=== PATIENT | male | born 1960 | race Caucasian/White ===

== ENCOUNTER 2018-12-07 11:26 | Inpatient (IN) | payer OTHER ==
[~2018-12-07] VITALS: Ht 172.7 cm; Wt 108.9 kg
[2018-12-07 12:00] LABS: BASO % 1 % (0-3); EOS # 0.2 x10^3/uL (0.0-0.7); EOS % 4 % (0-3); HEMATOCRIT 43.9 % (39.0-53.0); HEMOGLOBIN 14.8 g/dL (13.0-17.5); LYMPH # 1.5 x10^3/uL (1.0-4.8); LYMPH % 27 % (24-48); MEAN CORPUSCULAR HEMOGLOBIN 31 pg (25-35); MEAN CORPUSCULAR HGB CONC 34 g/dL (31-37); MEAN CORPUSCULAR VOLUME 91 fL (79-100); MONO # 0.7 x10^3/uL (0.0-1.1); MONO % 13 % (0-9); NEUT % 55 % (31-73); PLATELET COUNT 136 x10^3/uL (140-400); RED CELL DISTRIBUTION WIDTH 13.2 % (11.5-14.5); WHITE BLOOD COUNT 5.4 x10^3/uL (4.0-11.0)
[2018-12-07] MEDS ORDERED: CLINDAMYCIN 600MG PREMIX 50 ML IV ONE (12:00)
[2018-12-07] MEDS ORDERED: IV NORMAL SALINE 1000ML BAG 1,000 ML IV ONE (12:00)
[2018-12-07 12:08] LABS: CREATININE 1.1 mg/dL (0.7-1.3); GFR 68.5; POTASSIUM 4.3 mmol/L (3.5-5.1)
[2018-12-07 12:14] LABS: ALBUMIN 3.7 g/dL (3.4-5.0); ALBUMIN/GLOBULIN RATIO 0.9 (1.0-1.7); TOTAL BILIRUBIN 0.8 mg/dL (0.2-1.0); TOTAL PROTEIN 7.9 g/dL (6.4-8.2)
--- NOTE | 2018-12-07 12:31 | RAD ---
Left lower extremity venous duplex study Clinical History: Lower extremity pain Technique: Using a combination of real time ultrasound imaging and color-flow and pulse Doppler imaging techniques, including spectral analysis, graded compression and augmentation, duplex evaluation of the deep venous system of the left lower extremity was performed. Multiple images were obtained. Findings: There is no sonographic evidence of deep venous thrombosis involving the visualized deep venous structures of the left lower extremity Impression: No evidence of deep venous thrombosis involving the left lower extremity Electronically signed by: Alan Cid MD (12/07/2018 12:28 PM) [facility]
--- NOTE | 2018-12-07 12:37 | PHYS DOC ---
Past Medical History Past Medical History: Diabetes-Type II, Hypertension, Hypothyroid Past Surgical History: Cholecystectomy Additional Past Surgical Histo: LUMBAR FUSION, SPINAL IMPLANT, AORTIC VALVE REPLACEMENT Alcohol Use: None Drug Use: None Adult General Chief Complaint Chief Complaint: LOWER EXT PAIN HPI HPI Patient is a 58 year old male who presents with left leg swelling, redness, and pain has been increasing in severity. She was originally seen at [facility] 5 weeks ago for left foot pain, he states his left foot has improved and his wound has healed. Was seen in the wound clinic on Wednesday and they said his foot was looking good, however he said several days ago his left leg started getting redness and swelling. Rates his pain as 5 out of 10 in severity and sharp. The patient is a diabetic. Review of Systems Review of Systems Constitutional: Denies fever or chills [] Eyes: Denies change in visual acuity, redness, or eye pain [] HENT: Denies nasal congestion or sore throat [] Respiratory: Denies cough or shortness of breath [] Cardiovascular: No additional information not addressed in HPI [] GI: Denies abdominal pain, nausea, vomiting, bloody stools or diarrhea [] : Denies dysuria or hematuria [] Musculoskeletal: Reports L leg pain. Integument: Reports redness to L leg. Neurologic: Denies headache, focal weakness or sensory changes [] Endocrine: Denies polyuria or polydipsia [] Complete systems were reviewed and found to be within normal limits, except as documented in this note. Current Medications Current Medications Current Medications Medications (Trade) Dose Ordered Sig/Mariposa Start Time Stop Time Status Last Admin Dose Admin Clindamycin Phosphate 50 ml @ 100 mls/hr 1X ONCE 12/07/18 12:00 12/07/18 12:29 DC 12/07/18 12:27 100 MLS/HR Sodium Chloride 1,000 ml @ 1,000 mls/hr 1X ONCE 12/07/18 12:00 12/07/18 12:59 DC 12/07/18 12:27 1,000 MLS/HR Allergies Allergies Allergies Coded Allergies Type Severity Reaction Last Updated Verified tetracycline Allergy Unknown rash 12/07/18 Yes Physical Exam Physical Exam Constitutional: Well developed, well nourished, no acute distress, non-toxic appearance. [] HENT: Normocephalic, atraumatic, bilateral external ears normal, oropharynx moist, no oral exudates, nose normal. [] Eyes: PERRLA, EOMI, conjunctiva normal, no discharge. [] Neck: Normal range of motion, no tenderness, supple, no stridor. [] Cardiovascular:Heart rate regular rhythm, no murmur [] Lungs & Thorax: Bilateral breath sounds clear to auscultation [] Abdomen: Bowel sounds normal, soft, no tenderness, no masses, no pulsatile masses. [] Skin: Warm, dry, no erythema, no rash. [] Back: No tenderness, no CVA tenderness. [] Extremities: Tenderness, and erythema and edema to L leg. Is hot to touch. Neurologic: Alert and oriented X 3, normal motor function, normal sensory function, no focal deficits noted. [] Psychologic: Affect normal, judgement normal, mood normal. [] Current Patient Data Vital Signs Vital Signs Date Time Temp Pulse Resp B/P (MAP) Pulse Ox O2 Delivery O2 Flow Rate FiO2 12/07/18 11:28 98.6 90 18 167/94 (118) 98 Room Air 98.6 Lab Values Laboratory Tests Test 12/07/18 11:46 White Blood Count 5.4 x10^3/uL (4.0-11.0) Red Blood Count 4.80 x10^6/uL (4.30-5.70) Hemoglobin 14.8 g/dL (13.0-17.5) Hematocrit 43.9 % (39.0-53.0) Mean Corpuscular Volume 91 fL (79-100) Mean Corpuscular Hemoglobin 31 pg (25-35) Mean Corpuscular Hemoglobin Concent 34 g/dL (31-37) Red Cell Distribution Width 13.2 % (11.5-14.5) Platelet Count 136 x10^3/uL (140-400) L Neutrophils (%) (Auto) 55 % (31-73) Lymphocytes (%) (Auto) 27 % (24-48) Monocytes (%) (Auto) 13 % (0-9) H Eosinophils (%) (Auto) 4 % (0-3) H Basophils (%) (Auto) 1 % (0-3) Neutrophils # (Auto) 3.0 x10^3/uL (1.8-7.7) Lymphocytes # (Auto) 1.5 x10^3/uL (1.0-4.8) Monocytes # (Auto) 0.7 x10^3/uL (0.0-1.1) Eosinophils # (Auto) 0.2 x10^3/uL (0.0-0.7) Basophils # (Auto) 0.0 x10^3/uL (0.0-0.2) Platelet Estimate Adequate (ADEQUATE) Large Platelets Present Sodium Level 141 mmol/L (136-145) Potassium Level 4.3 mmol/L (3.5-5.1) Chloride Level 103 mmol/L (98-107) Carbon Dioxide Level 31 mmol/L (21-32) Anion Gap 7 (6-14) Blood Urea Nitrogen 18 mg/dL (8-26) Creatinine 1.1 mg/dL (0.7-1.3) Estimated GFR (Cockcroft-Gault) 68.5 BUN/Creatinine Ratio 16 (6-20) Glucose Level 166 mg/dL (70-99) H Lactic Acid Level 0.7 mmol/L (0.4-2.0) Calcium Level 9.0 mg/dL (8.5-10.1) Total Bilirubin 0.8 mg/dL (0.2-1.0) Aspartate Amino Transferase (AST) 27 U/L (15-37) Alanine Aminotransferase (ALT) 32 U/L (16-63) Alkaline Phosphatase 94 U/L (46-116) Total Protein 7.9 g/dL (6.4-8.2) Albumin 3.7 g/dL (3.4-5.0) Albumin/Globulin Ratio 0.9 (1.0-1.7) L Laboratory Tests 12/07/18 11:46 Laboratory Tests 12/07/18 11:46 EKG EKG [] Radiology/Procedures Radiology/Procedures [facility] [address] [place] [address] IMAGING REPORT Signed PATIENT: AUBRIE OSMAN ACCOUNT: [id number] : 1960 LOCATION: ER AGE: 58 SEX: M EXAM STATUS: REG ER ORD. PHYSICIAN: BUSHRA HONG APRN REASON: pain, swelling PROCEDURE: TIBIA FIBULA LEFT EXAM: LEFT TIBIA/FIBULA 2 VIEWS. HISTORY: Left lower extremity pain/swelling. COMPARISON: None. FINDINGS: No fractures are identified. Focal cortical thickening along the medial aspect of the left proximal fibular metadiaphysis is most likely secondary to ossification of the interosseous membrane. There are small osteophytes along the medial compartment of the left knee consistent with mild osteoarthritis. Ossification at the tip of the lateral malleolus likely reflects chronic ligamentous injury. There are moderate plantar and posterior calcaneal spurs. There is diffuse subcutaneous edema throughout the visualized lower extremity. Atherosclerotic calcifications are noted. IMPRESSION: 1. Focal cortical thickening along the left proximal fibula is most likely a variant of normal. Correlate for focal proximal fibular tenderness to exclude a stress reaction. 2. Diffuse subcutaneous edema. Electronically signed by: Meenakshi Ballard MD (12/07/2018 12:42 PM) [facility] DICTATED and SIGNED BY: ALEX BALLARD MD DATE: 12/07/18 1242 [][facility] [address], [place] [id number] IMAGING REPORT Signed PATIENT: AUBRIE OSMAN ACCOUNT: [id number] : 1960 LOCATION: ER AGE: 58 SEX: M EXAM STATUS: REG ER ORD. PHYSICIAN: BUSHRA HONG APRN REASON: swelling, pain PROCEDURE: VENOUS LOWER EXTREMITY LEFT Left lower extremity venous duplex study Clinical History: Lower extremity pain Technique: Using a combination of real time ultrasound imaging and color-flow and pulse Doppler imaging techniques, including spectral analysis, graded compression and augmentation, duplex evaluation of the deep venous system of the left lower extremity was performed. Multiple images were obtained. Findings: There is no sonographic evidence of deep venous thrombosis involving the visualized deep venous structures of the left lower extremity Impression: No evidence of deep venous thrombosis involving the left lower extremity Electronically signed by: Alan Reynoso MD (12/07/2018 12:28 PM) [facility] DICTATED and SIGNED BY: ALAN REYNOSO MD DATE: 12/07/18 1228 Course & Med Decision Making Course & Med Decision Making Pertinent Labs and Imaging studies reviewed. (See chart for details) Will get ultrasound, labs, and give Clindamycin. Ultrasound and X-ray are unremarkable. Labs are unremarkable. Discussed with Dr. Ontiveros who accepts admission to hospital for Cellulitis. Rajan Disclaimer Rajan Disclaimer This electronic medical record was generated, in whole or in part, using a voice recognition dictation system. Departure Departure Impression: Primary Impression: Cellulitis Disposition: ADMITTED INPATIENT Admitting Physician: SD Condition: STABLE Referrals: [facility] [employer] [facility] (PCP) Problem Qualifiers Primary Impression: Cellulitis Site of cellulitis: extremity Site of cellulitis of extremity: lower extremity Laterality: left Qualified Codes: L03.116 - Cellulitis of left lower limb BUSHRA HONG APRN Dec 07, 2018 12:37
--- NOTE | 2018-12-07 12:45 | RAD ---
EXAM: LEFT TIBIA/FIBULA 2 VIEWS. HISTORY: Left lower extremity pain/swelling. COMPARISON: None. FINDINGS: No fractures are identified. Focal cortical thickening along the medial aspect of the left proximal fibular metadiaphysis is most likely secondary to ossification of the interosseous membrane. There are small osteophytes along the medial compartment of the left knee consistent with mild osteoarthritis. Ossification at the tip of the lateral malleolus likely reflects chronic ligamentous injury. There are moderate plantar and posterior calcaneal spurs. There is diffuse subcutaneous edema throughout the visualized lower extremity. Atherosclerotic calcifications are noted. IMPRESSION: 1. Focal cortical thickening along the left proximal fibula is most likely a variant of normal. Correlate for focal proximal fibular tenderness to exclude a stress reaction. 2. Diffuse subcutaneous edema. Electronically signed by: Meenakshi Ballard MD (12/07/2018 12:42 PM) [facility]
[2018-12-07 12:48] LABS: PLT ESTIMATE ADEQUATE (ADEQUATE)
--- NOTE | 2018-12-07 14:11 | PDOC1 ---
History and Physical Date of Admission Date of Admission DATE: 12/07/18 TIME: 14:10 Identification/Chief Complaint Chief Complaint SEEN IN ER, STARTED ON IV VANC 58 year old male who presents with left leg swelling, redness, and pain has been increasing in severity. She was originally seen at [facility] 5 weeks ago for left foot pain, he states his left foot has improved and his wound has healed. Was seen in the wound clinic on Wednesday and they said his foot was looking good, however he said several days ago his left leg started getting redness and swelling. Rates his pain as 5 out of 10 in severity and sharp. The patient is diabetic. Past Medical History Past Medical History Past Medical History Past Medical History: Diabetes-Type II, Hypertension, Hypothyroid Past Surgical History: Cholecystectomy Additional Past Surgical Histo: LUMBAR FUSION, SPINAL IMPLANT, AORTIC VALVE REPLACEMENT Alcohol Use: None Drug Use: None fhx obesity Cardiovascular: Hyperlipidemia Endocrine: Diabetes Family History Family History: Diabetes, Hypertension Social History Smoke: No ALCOHOL: none Drugs: None Current Problem List Problem List Problems Medical Problems: (1) Cellulitis Status: Acute Current Medications Current Medications Current Medications Sodium Chloride 1,000 ml @ 1,000 mls/hr 1X ONCE IV Last administered on 12/07/18at 12:27; Start 12/07/18 at 12:00; Stop 12/07/18 at 12:59; Status DC Clindamycin Phosphate 50 ml @ 100 mls/hr 1X ONCE IV Last administered on 12/07/18at 12:27; Start 12/07/18 at 12:00; Stop 12/07/18 at 12:29; Status DC Allergies Allergies: Coded Allergies: tetracycline (Verified Allergy, Intermediate, rash, 12/07/18) ROS Review of System Review of Systems Review of Systems Constitutional: Denies fever or chills [] Eyes: Denies change in visual acuity, redness, or eye pain [] HENT: Denies nasal congestion or sore throat [] Respiratory: Denies cough or shortness of breath [] Cardiovascular: No additional information not addressed in HPI [] GI: Denies abdominal pain, nausea, vomiting, bloody stools or diarrhea [] : Denies dysuria or hematuria [] Musculoskeletal: Reports L leg pain. Integument: Reports redness to L leg./PAIN Neurologic: Denies headache, focal weakness or sensory changes [] Endocrine: Denies polyuria or polydipsia [] 14 PT systems were reviewed and found to be within normal limits, except as documented . Eyes: No Blurry vision, No Decreased vision, No Double vision, No Dry eyes, No Excessive tearing, No Eye Pain, No Itchy Eyes, No Loss of vision, No Photophobia, No Scotomata, No Uses contacts, No Uses glasses, No Other Hematological and Lymphatic: No: Bleeding Problems, Blood Clots, Blood Transfusions, Brusing, Night Sweats, Pallor, Swollen Lymph Nodes, Other Gastrointestinal: No Nausea, No Vomiting, No Abdominal Pain, No Diarrhea, No Constipation, No Melena, No Hematochezia, No Other Musculoskeletal: Yes Gait Disturbance, Yes Joint Stiffness Skin: Yes Rash, Yes Skin Lesion Changes Physical Exam Physical Exam Review of Systems Review of Systems Constitutional: Denies fever or chills [] Eyes: Denies change in visual acuity, redness, or eye pain [] HENT: Denies nasal congestion or sore throat [] Respiratory: Denies cough or shortness of breath [] Cardiovascular: No additional information not addressed in HPI [] GI: Denies abdominal pain, nausea, vomiting, bloody stools or diarrhea [] : Denies dysuria or hematuria [] Musculoskeletal: Reports L leg pain. Integument: Reports redness to L leg. Neurologic: Denies headache, focal weakness or sensory changes [] Endocrine: Denies polyuria or polydipsia [] 14 PT systems were reviewed and found to be within normal limits, except as documented General: Alert, Oriented X3, Cooperative, mild distress HEENT: EOMI Heart: RRR Breasts: Not examined Abdomen: Normal bowel sounds, Soft Rectal Exam: not examined Extremities: No cyanosis Neuro: Normal speech, Sensation intact, Cranial nerves 3-12 NL Psych/Mental Status: Mental status NL, Mood NL Vitals Vitals Vital Signs Date Time Temp Pulse Resp B/P (MAP) Pulse Ox O2 Delivery O2 Flow Rate FiO2 12/07/18 11:28 98.6 90 18 167/94 (118) 98 Room Air 98.6 Labs Labs Laboratory Tests Test 12/07/18 11:46 White Blood Count 5.4 x10^3/uL (4.0-11.0) Red Blood Count 4.80 x10^6/uL (4.30-5.70) Hemoglobin 14.8 g/dL (13.0-17.5) Hematocrit 43.9 % (39.0-53.0) Mean Corpuscular Volume 91 fL (79-100) Mean Corpuscular Hemoglobin 31 pg (25-35) Mean Corpuscular Hemoglobin Concent 34 g/dL (31-37) Red Cell Distribution Width 13.2 % (11.5-14.5) Platelet Count 136 x10^3/uL (140-400) Neutrophils (%) (Auto) 55 % (31-73) Lymphocytes (%) (Auto) 27 % (24-48) Monocytes (%) (Auto) 13 % (0-9) Eosinophils (%) (Auto) 4 % (0-3) Basophils (%) (Auto) 1 % (0-3) Neutrophils # (Auto) 3.0 x10^3/uL (1.8-7.7) Lymphocytes # (Auto) 1.5 x10^3/uL (1.0-4.8) Monocytes # (Auto) 0.7 x10^3/uL (0.0-1.1) Eosinophils # (Auto) 0.2 x10^3/uL (0.0-0.7) Basophils # (Auto) 0.0 x10^3/uL (0.0-0.2) Platelet Estimate Adequate (ADEQUATE) Large Platelets Present Sodium Level 141 mmol/L (136-145) Potassium Level 4.3 mmol/L (3.5-5.1) Chloride Level 103 mmol/L (98-107) Carbon Dioxide Level 31 mmol/L (21-32) Anion Gap 7 (6-14) Blood Urea Nitrogen 18 mg/dL (8-26) Creatinine 1.1 mg/dL (0.7-1.3) Estimated GFR (Cockcroft-Gault) 68.5 BUN/Creatinine Ratio 16 (6-20) Glucose Level 166 mg/dL (70-99) Lactic Acid Level 0.7 mmol/L (0.4-2.0) Calcium Level 9.0 mg/dL (8.5-10.1) Total Bilirubin 0.8 mg/dL (0.2-1.0) Aspartate Amino Transf (AST/SGOT) 27 U/L (15-37) Alanine Aminotransferase (ALT/SGPT) 32 U/L (16-63) Alkaline Phosphatase 94 U/L (46-116) Total Protein 7.9 g/dL (6.4-8.2) Albumin 3.7 g/dL (3.4-5.0) Albumin/Globulin Ratio 0.9 (1.0-1.7) Laboratory Tests Test 12/07/18 11:46 White Blood Count 5.4 x10^3/uL (4.0-11.0) Red Blood Count 4.80 x10^6/uL (4.30-5.70) Hemoglobin 14.8 g/dL (13.0-17.5) Hematocrit 43.9 % (39.0-53.0) Mean Corpuscular Volume 91 fL (79-100) Mean Corpuscular Hemoglobin 31 pg (25-35) Mean Corpuscular Hemoglobin Concent 34 g/dL (31-37) Red Cell Distribution Width 13.2 % (11.5-14.5) Platelet Count 136 x10^3/uL (140-400) Neutrophils (%) (Auto) 55 % (31-73) Lymphocytes (%) (Auto) 27 % (24-48) Monocytes (%) (Auto) 13 % (0-9) Eosinophils (%) (Auto) 4 % (0-3) Basophils (%) (Auto) 1 % (0-3) Neutrophils # (Auto) 3.0 x10^3/uL (1.8-7.7) Lymphocytes # (Auto) 1.5 x10^3/uL (1.0-4.8) Monocytes # (Auto) 0.7 x10^3/uL (0.0-1.1) Eosinophils # (Auto) 0.2 x10^3/uL (0.0-0.7) Basophils # (Auto) 0.0 x10^3/uL (0.0-0.2) Platelet Estimate Adequate (ADEQUATE) Large Platelets Present Sodium Level 141 mmol/L (136-145) Potassium Level 4.3 mmol/L (3.5-5.1) Chloride Level 103 mmol/L (98-107) Carbon Dioxide Level 31 mmol/L (21-32) Anion Gap 7 (6-14) Blood Urea Nitrogen 18 mg/dL (8-26) Creatinine 1.1 mg/dL (0.7-1.3) Estimated GFR (Cockcroft-Gault) 68.5 BUN/Creatinine Ratio 16 (6-20) Glucose Level 166 mg/dL (70-99) Lactic Acid Level 0.7 mmol/L (0.4-2.0) Calcium Level 9.0 mg/dL (8.5-10.1) Total Bilirubin 0.8 mg/dL (0.2-1.0) Aspartate Amino Transf (AST/SGOT) 27 U/L (15-37) Alanine Aminotransferase (ALT/SGPT) 32 U/L (16-63) Alkaline Phosphatase 94 U/L (46-116) Total Protein 7.9 g/dL (6.4-8.2) Albumin 3.7 g/dL (3.4-5.0) Albumin/Globulin Ratio 0.9 (1.0-1.7) Images Images EXAM: LEFT TIBIA/FIBULA 2 VIEWS. HISTORY: Left lower extremity pain/swelling. COMPARISON: None. FINDINGS: No fractures are identified. Focal cortical thickening along the medial aspect of the left proximal fibular metadiaphysis is most likely secondary to ossification of the interosseous membrane. There are small osteophytes along the medial compartment of the left knee consistent with mild osteoarthritis. Ossification at the tip of the lateral malleolus likely reflects chronic ligamentous injury. There are moderate plantar and posterior calcaneal spurs. There is diffuse subcutaneous edema throughout the visualized lower extremity. Atherosclerotic calcifications are noted. IMPRESSION: 1. Focal cortical thickening along the left proximal fibula is most likely a variant of normal. Correlate for focal proximal fibular tenderness to exclude a stress reaction. 2. Diffuse subcutaneous edema. Electronically signed by: Meenakshi Ballard MD (12/07/2018 12:42 PM) [facility] DICTATED and SIGNED BY: ALEX BALLARD MD DATE: 12/07/18 1242 Left lower extremity venous duplex study Clinical History: Lower extremity pain Technique: Using a combination of real time ultrasound imaging and color-flow and pulse Doppler imaging techniques, including spectral analysis, graded compression and augmentation, duplex evaluation of the deep venous system of the left lower extremity was performed. Multiple images were obtained. Findings: There is no sonographic evidence of deep venous thrombosis involving the visualized deep venous structures of the left lower extremity Impression: No evidence of deep venous thrombosis involving the left lower extremity Electronically signed by: Alan Reynoso MD (12/07/2018 12:28 PM) [facility] DICTATED and SIGNED BY: ALAN REYNOSO MD DATE: 12/07/18 1228 VTE Prophylaxis Ordered VTE Prophylaxis Devices: Contraindicated VTE Pharmacological Prophylaxi: Yes Assessment/Plan Assessment/Plan IMPRESSION: 1. Focal cortical thickening along the left proximal fibula is most likely a variant of normal. Correlate for focal proximal fibular tenderness to exclude a stress reaction. 2. Diffuse subcutaneous edema./ cellulitis LEFT LOWER LEG 3. SIRS 4. Diabetes 5. morbid obesity plan admit iv antibiotics, VANCOMYCIN accuchecks ss insulin consult ID CONSULT ORTHO 57 MIN pt exam, chart review> 50% of time spent with exam, chart review, pt care coordination MIKY LOWRY MD Dec 07, 2018 14:11
[2018-12-07 15:00] VITALS: BP 162/93
[2018-12-07] MEDS ORDERED: VANCOMYCIN 1 GM in IV NORMAL SALINE 250ML 250 ML IV SCH (15:15)
[2018-12-07] MEDS ORDERED: VANCOMYCIN PER PHARMACY MC PRN (15:15)
[2018-12-07] MEDS ORDERED: VANCOMYCIN 2 GM in IV NORMAL SALINE 500ML BAG 500 ML IV ONE (16:00)
[2018-12-07] MEDS ORDERED: ONDANSETRON PF 4 MG/2 ML VIAL. IV PRN (16:15)
[2018-12-07] MEDS ORDERED: 0.9 % SODIUM CHLORIDE 10 ML DISP.SYRIN. IV PRN (16:15)
[2018-12-07] MEDS ORDERED: DOCUSATE SODIUM 100 MG CAPSULE. PO PRN (16:15)
[2018-12-07] MEDS ORDERED: LORazepam 0.5 MG TABLET PO PRN (16:15)
[2018-12-07] MEDS ORDERED: ALBUTEROL SULFATE 2.5 MG/3 ML NEBU. NEB PRN (16:15)
[2018-12-07] MEDS ORDERED: ACETAMINOPHEN 325 MG TABLET. PO PRN (16:15)
[2018-12-07] MEDS ORDERED: DEXTROSE 50% 25 GM / 50ML DISP.SYRIN. IV PRN (16:15)
[2018-12-07] MEDS ORDERED: guaiFENesin ORAL 200 MG/10 ML LIQUID. PO PRN (16:15)
[2018-12-07] MEDS ORDERED: cloNIDine HCL 0.1 MG TABLET PO PRN (16:15)
--- NOTE | 2018-12-07 16:19 | PDOC ---
Infectious Disease Note Vital Signs: Vital Signs Vital Signs Date Time Temp Pulse Resp B/P (MAP) Pulse Ox O2 Delivery O2 Flow Rate FiO2 12/07/18 13:36 86 16 138/71 (93) 97 Room Air 12/07/18 11:28 98.6 98.6 Medications: Inpatient Meds: Current Medications Medications (Trade) Dose Ordered Sig/Mariposa Start Time Stop Time Status Last Admin Dose Admin Acetaminophen (Tylenol) 650 mg PRN Q4HRS PRN 12/07/18 16:15 UNV Albuterol Sulfate (Ventolin Neb Soln) 2.5 mg PRN Q4HRS PRN 12/07/18 16:15 UNV Cefazolin Sodium 1 gm/Dextrose 50 ml @ 100 mls/hr Q8HRS 12/07/18 22:00 UNV Clindamycin Phosphate 50 ml @ 100 mls/hr 1X ONCE 12/07/18 12:00 12/07/18 12:29 DC 12/07/18 12:27 100 MLS/HR Clonidine HCl (Catapres) 0.1 mg PRN Q6HRS PRN 12/07/18 16:15 UNV Dextrose (Dextrose 50%-Water Syringe) 12.5 gm PRN Q15MIN PRN 12/07/18 16:15 UNV Docusate Sodium (Colace) 100 mg PRN BID PRN 12/07/18 16:15 UNV Enoxaparin Sodium (Lovenox 40mg Syringe) 40 mg DAILY 12/08/18 09:00 UNV Fluconazole (Diflucan) 200 mg DAILY 12/08/18 09:00 UNV Guaifenesin (Robitussin) 200 mg PRN Q4HRS PRN 12/07/18 16:15 UNV Influenza Virus Vaccine Quadrival (Afluria Quad 2019-20 (3yr Up) Syringe) 0.5 ml ONCE ONCE 12/07/18 17:00 12/07/18 17:01 Insulin Human Lispro (HumaLOG) 0-5 UNITS TIDWMEALS 12/07/18 17:00 UNV Lorazepam (Ativan) 0.5 mg PRN Q4HRS PRN 12/07/18 16:15 UNV Ondansetron HCl (Zofran) 4 mg PRN Q4HRS PRN 12/07/18 16:15 UNV Sodium Chloride 1,000 ml @ 100 mls/hr Q10H 12/07/18 16:13 UNV Sodium Chloride (Normal Saline Flush) 3 ml QSHIFT PRN 12/07/18 16:15 UNV Vancomycin HCl (Vanco Per Pharmacy) 1 each PRN DAILY PRN 12/07/18 15:15 Vancomycin HCl 1 gm/Sodium Chloride 250 ml @ 250 mls/hr Q12H 12/07/18 15:15 UNV Vancomycin HCl 2 gm/Sodium Chloride 500 ml @ 250 mls/hr 1X ONCE 12/07/18 16:00 12/07/18 17:59 Labs: Lab Laboratory Tests Test 12/07/18 11:46 White Blood Count 5.4 x10^3/uL (4.0-11.0) Red Blood Count 4.80 x10^6/uL (4.30-5.70) Hemoglobin 14.8 g/dL (13.0-17.5) Hematocrit 43.9 % (39.0-53.0) Mean Corpuscular Volume 91 fL (79-100) Mean Corpuscular Hemoglobin 31 pg (25-35) Mean Corpuscular Hemoglobin Concent 34 g/dL (31-37) Red Cell Distribution Width 13.2 % (11.5-14.5) Platelet Count 136 x10^3/uL (140-400) Neutrophils (%) (Auto) 55 % (31-73) Lymphocytes (%) (Auto) 27 % (24-48) Monocytes (%) (Auto) 13 % (0-9) Eosinophils (%) (Auto) 4 % (0-3) Basophils (%) (Auto) 1 % (0-3) Neutrophils # (Auto) 3.0 x10^3/uL (1.8-7.7) Lymphocytes # (Auto) 1.5 x10^3/uL (1.0-4.8) Monocytes # (Auto) 0.7 x10^3/uL (0.0-1.1) Eosinophils # (Auto) 0.2 x10^3/uL (0.0-0.7) Basophils # (Auto) 0.0 x10^3/uL (0.0-0.2) Platelet Estimate Adequate (ADEQUATE) Large Platelets Present Sodium Level 141 mmol/L (136-145) Potassium Level 4.3 mmol/L (3.5-5.1) Chloride Level 103 mmol/L (98-107) Carbon Dioxide Level 31 mmol/L (21-32) Anion Gap 7 (6-14) Blood Urea Nitrogen 18 mg/dL (8-26) Creatinine 1.1 mg/dL (0.7-1.3) Estimated GFR (Cockcroft-Gault) 68.5 BUN/Creatinine Ratio 16 (6-20) Glucose Level 166 mg/dL (70-99) Lactic Acid Level 0.7 mmol/L (0.4-2.0) Calcium Level 9.0 mg/dL (8.5-10.1) Total Bilirubin 0.8 mg/dL (0.2-1.0) Aspartate Amino Transf (AST/SGOT) 27 U/L (15-37) Alanine Aminotransferase (ALT/SGPT) 32 U/L (16-63) Alkaline Phosphatase 94 U/L (46-116) Total Protein 7.9 g/dL (6.4-8.2) Albumin 3.7 g/dL (3.4-5.0) Albumin/Globulin Ratio 0.9 (1.0-1.7) Objective: Assessment: Pt seen and examined IMP: LLE Cellulitis Tinea DM2 Onychomycosis Plan: Plan of Care Cefazolin Micafungin DC IV Vanc Elevate LLE D/w Nursing Consult dictated [phone] Thank you MARTHA MUÑOZ MD Dec 07, 2018 16:19
[2018-12-07] MEDS ORDERED: TIMO5DRO5 EACHEYE (16:28)
[2018-12-07] MEDS ORDERED: LISI-338 PO (16:28)
[2018-12-07] MEDS ORDERED: FLUT16SP NS (16:28)
[2018-12-07] MEDS ORDERED: LEVO100T5 PO (16:28)
[2018-12-07] MEDS ORDERED: GLIP10TA13 PO (16:28)
[2018-12-07] MEDS ORDERED: MULT1TAB52 PO (16:28)
[2018-12-07] MEDS ORDERED: DILT120C99 PO (16:28)
[2018-12-07] MEDS ORDERED: POTA10TA12 PO (16:28)
[2018-12-07] MEDS ORDERED: METF500T16 PO (16:28)
[2018-12-07] MEDS ORDERED: METO50TA6 PO (16:28)
[2018-12-07] MEDS ORDERED: KETO15CR2 TP (16:28)
[2018-12-07] MEDS ORDERED: METF10007 PO (16:28)
[2018-12-07] MEDS ORDERED: DORZ10DR7 EACHEYE (16:28)
[2018-12-07] MEDS ORDERED: ATORVASTATIN CA80 MG PO (16:28)
[2018-12-07] MEDS ORDERED: FURO-68 PO (16:28)
[2018-12-07] MEDS ORDERED: DULO60CA6 PO (16:28)
[2018-12-07] MEDS ORDERED: TRIA15OI TP (16:28)
[2018-12-07] MEDS ORDERED: VITS42.55 TP (16:28)
[2018-12-07] MEDS ORDERED: FLU VAX QS 2019-20 (36MOS+)/PF 0.5 ML SYRINGE. VAX IM ONE (17:00)
[2018-12-07] MEDS ORDERED: INSULIN LISPRO 300 UNITS/3 ML VIAL. SQ SCH (17:00)
[2018-12-07] MEDS: ceFAZolin SODIUM IV Push 1 GM VIAL. IVP SCH ×2 (17:13→22:40)
[2018-12-07] MEDS: FLUCONAZOLE 100 MG TABLET. PO SCH (17:14)
[2018-12-07] MEDS: IV NORMAL SALINE 1000ML BAG 1,000 ML IV SCH (17:14)
[2018-12-07] MEDS ORDERED: WARF4TAB64 PO (18:58)
[2018-12-07] MEDS ORDERED: WARF3TAB50 PO (18:58)
[2018-12-07 19:00] VITALS: BP 146/87
[2018-12-07 19:19] LABS: PROTHROMBIN TIME PATIENT 19.8 SEC (11.7-14.0)
--- NOTE | 2018-12-07 19:23 | NUR ---
Pharmacy Warfarin Dosing Note S:Pharmacy consulted to assist with anticoagulation therapy with target INR: 2 -3 O:AUBRIE OSMAN is a 58 year old M with Mechanical Aortic Valve LABS: Last INR: 1.7 Last HGB: 14.8 Last HCT: 43.9 Last PLT: 136 Previous Regimen: 7MG DAILY A:INR of 1.7 is below desired range. Target range for this patient is: 2 -3 P: Warfarin dose: 7.5 mg Today Bridge Therapy: lovenox Next INR due tomorrow Pharmacy anticoagulation service will continue to follow. Janice Lenz Tru, 12/07/18 0711
[2018-12-07] MEDS: glipiZIDE 5 MG TABLET PO SCH (19:37)
[2018-12-07] MEDS ORDERED: WARFARIN 7.5 MG TABLET. PO ONE (20:00)
[2018-12-07] MEDS: VITS A & D/LANOLIN TOPICAL OINTMENT 42GM TUBE. TP SCH (21:00)
--- NOTE | 2018-12-07 21:13 | CONS ---
DATE OF CONSULTATION: REFERRING PHYSICIAN: Dr. Ontiveros. REASON FOR CONSULTATION: Left lower extremity cellulitis. HISTORY OF PRESENT ILLNESS: A 58-year-old male who presents from [facility] with complaints of left leg swelling, redness and pain with worsening severity over the last one month. He was seen at [facility] 5 weeks ago for left foot pain, which he states started with having a blister on the right great toe on the plantar aspect, which started improving. He was seen by wound team last Wednesday; it was healed. He started having left lower extremity redness and swelling with subjective fever and chills. The patient has diabetes. He had been on clindamycin for a couple of weeks prior to admission. He received a dose of clindamycin in the Emergency Room along with IV vancomycin. He underwent ultrasound of the lower extremities which is negative for deep venous thrombosis. He has diabetes. The patient was incarcerated for 7 years until recently when he was transferred to [facility]. REVIEW OF SYSTEMS: Negative except for above. Denies fevers, chills, nausea, vomiting, diarrhea, abdominal pain, headache, visual disturbances or genitourinary symptoms. Has left leg pain, swelling, redness as above. PAST MEDICAL HISTORY: Diabetes mellitus 2, hypertension, hypothyroidism, status post cholecystectomy, lumbar fusion surgery, spinal implant surgery, aortic valve replacement. SOCIAL HISTORY: Denies smoking, ETOH, or illicit drug use. Currently, at the [facility], was incarcerated. CURRENT MEDICATIONS: One dose of clindamycin, one dose of vancomycin. ALLERGIES: TETRACYCLINE, CAUSING RASH. PHYSICAL EXAMINATION: VITAL SIGNS: Temperature 98.6, pulse 86, respiratory rate 16, blood pressure 138/71, oxygen saturation 97% on room air. GENERAL: Alert and oriented x 3 male lying in bed comfortably, in no acute distress, pleasant, cooperative. HEENT: Normocephalic, atraumatic, anicteric. No thrush. Oral mucosa moist. NECK: Supple, no JVD. LUNGS: Clear bilaterally. HEART: S1, S2, no murmurs. ABDOMEN: Soft, nontender, nondistended, no rebound, no guarding. DERMATOLOGIC: Warm and dry. No generalized rash except for left lower extremity redness, swelling, tenia onychomycosis. No calf tenderness. BACK: Reveals normal curvature. No CVA tenderness. NEUROLOGIC: Alert and oriented x 3, grossly nonfocal. PSYCHIATRIC: Cooperative, appropriate mood and affect. MUSCULOSKELETAL: No joint swelling. LABORATORY DATA: WBC 5.4, hemoglobin 14.8, hematocrit 43.9, platelets 136. Sodium 141, potassium 4.3, chloride 103, bicarbonate 31, BUN 18, creatinine 1.1, glucose 166. Lactate 0.7, albumin 3.7, total protein 7.9. DIAGNOSTICS: 1. X-ray of the left lower extremity, focal cortical thickening along the left proximal fibula is most likely a variant of normal, correlate for focal proximal fibula tenderness to exclude a stress reaction, diffuse subcutaneous edema, moderate plantar and posterior calcaneal spurs, degenerative joint disease changes. 2. Lower extremity ultrasound shows no evidence of deep venous thrombosis involving the left lower extremity. IMPRESSION: 1. Left lower extremity cellulitis, was on clindamycin as outpatient. 2. Tinea. 3. Diabetes mellitus. 4. Poor social situation. RECOMMENDATIONS: 1. Start cefazolin 1 gram IV q.8. 2. Start micafungin. 3. Follow up labs and cultures. 4. Elevate left lower extremity. 5. Continue supportive care. 6. Optimal edema control. Thank you, Dr. Ontiveros for consulting Infectious Disease to participate in this patient's care. If you have any questions, do not hesitate to contact us. MARTHA MUÑOZ MD DR: RENITA/parminder JOB#: [id number] / [id number] JEFFREY
[2018-12-07] MEDS: FLUTICASONE 50MCG/NASAL SPRAY 16GM BOTTLE. NS SCH (21:18)
[2018-12-07] MEDS: TIMOLOL 0.5% OPHTH SOLUTION 5ML BOTTLE. OU SCH (21:18)
[2018-12-07] MEDS: KETOCONAZOLE 2% TOPICAL CREAM 15GM TUBE. TP SCH (21:19)
[2018-12-07] MEDS: TRIAMCINOLONE ACETONIDE 0.1% TOPICAL OINTMENT 15GM TUBE. TP SCH (21:19)
[2018-12-07] MEDS: DORZOLAMIDE 2% OPHTH SOLUTION 10ML BOTTLE. OU SCH (21:19)
[2018-12-07] MEDS: INSULIN GLARGINE SYRINGE. SQ SCH (21:34)
[2018-12-07] MEDS: METOPROLOL TART IMMED RELEASE 50 MG TABLET. PO SCH (21:35)
[2018-12-07] MEDS ORDERED: ceFAZolin SODIUM 1 GM in IV DEXTROSE 5% 50 ML IV SCH (22:00)
[2018-12-07 23:00] VITALS: BP 129/73
[2018-12-08 03:00] VITALS: BP 130/69
[2018-12-08 05:15] LABS: PROTHROMBIN TIME PATIENT 20.9 SEC (11.7-14.0)
[2018-12-08] MEDS: LEVOTHYROXINE 100 MCG TABLET PO SCH (05:53)
[2018-12-08] MEDS: ceFAZolin SODIUM IV Push 1 GM VIAL. IVP SCH ×3 (05:55→21:34)
[2018-12-08] MEDS: IV NORMAL SALINE 1000ML BAG 1,000 ML IV SCH ×2 (06:01→16:42)
[2018-12-08 07:00] VITALS: BP 144/76
[2018-12-08] MEDS: glipiZIDE 5 MG TABLET PO SCH (07:30)
[2018-12-08] MEDS: INSULIN LISPRO 300 UNITS/3 ML VIAL. SQ SCH ×3 (07:55→17:26)
[2018-12-08] MEDS ORDERED: DEXTROSE 50% 25 GM / 50ML DISP.SYRIN. IV PRN (08:00)
--- NOTE | 2018-12-08 08:44 | PDOC2 ---
CONSULT Date of Consult Date of Consult DATE: 12/08/18 TIME: 08:40 Reason for Consult Reason for Consult: abnormality on x-ray of left leg Referring Physician Referring Physician: Rama Identification/Chief Complaint Chief Complaint Left leg pain History of Present Illness Reason for Visit: Patient has had worsening swelling and redness now for several days. He does feel better since being on IV antibiotics in the hospital. He was seen in physical therapy and referred to the ER for his worsening redness at his left lower extremity. I was asked to see him after x-rays revealed a cortical abnormality at the proximal fibular region. The patient tells me that he actually broke this leg and 6 places decades ago when he was a child. He has not had any pain in the intervening time except for this acute episode. He cannot think of any accident or injury to his leg that triggered his current situation and he feels like the redness is not spreading. He denies any other complaint or concern. Past Medical History Cardiovascular: Hyperlipidemia Endocrine: Diabetes Family History Family History: Diabetes, Hypertension Social History No ALCOHOL: none Drugs: None Current Problem List Problem List Problems Medical Problems: (1) Cellulitis Status: Acute Current Medications Current Medications Current Medications Sodium Chloride 1,000 ml @ 1,000 mls/hr 1X ONCE IV Last administered on 12/07/18at 12:27; Start 12/07/18 at 12:00; Stop 12/07/18 at 12:59; Status DC Clindamycin Phosphate 50 ml @ 100 mls/hr 1X ONCE IV Last administered on 12/07/18at 12:27; Start 12/07/18 at 12:00; Stop 12/07/18 at 12:29; Status DC Vancomycin HCl 1 gm/Sodium Chloride 250 ml @ 250 mls/hr Q12H IV ; Start 12/07/18 at 15:15; Status UNV Vancomycin HCl 2 gm/Sodium Chloride 500 ml @ 250 mls/hr 1X ONCE IV Last a dministered on 12/07/18at 17:15; Start 12/07/18 at 16:00; Stop 12/07/18 at 17:59; Status DC Vancomycin HCl (Vanco Per Pharmacy) 1 each PRN DAILY PRN MC SEE COMMENTS; Start 12/07/18 at 15:15; Stop 12/07/18 at 16:17; Status DC Influenza Virus Vaccine Quadrival (Afluria Quad 2019-20 (3yr Up) Syringe) 0.5 ml ONCE ONCE VAX IM Last administered on 12/07/18at 17:17; Start 12/07/18 at 17:00; Stop 12/07/18 at 17:01; Status DC Fluconazole (Diflucan) 200 mg DAILY PO Last administered on 12/07/18at 17:14; Start 12/07/18 at 16:30 Cefazolin Sodium 1 gm/Dextrose 50 ml @ 100 mls/hr Q8HRS IV ; Start 12/07/18 at 22:00; Status UNV Insulin Human Lispro (HumaLOG) 0-5 UNITS TIDWMEALS SQ Last administered on 12/07/18at 17:22; Start 12/07/18 at 17:00; Stop 12/08/18 at 07:54; Status DC Dextrose (Dextrose 50%-Water Syringe) 12.5 gm PRN Q15MIN PRN IV SEE COMMENTS; Start 12/07/18 at 16:15 Sodium Chloride (Normal Saline Flush) 3 ml QSHIFT PRN IV AFTER MEDS AND BLOOD DRAWS; Start 12/07/18 at 16:15 Sodium Chloride 1,000 ml @ 100 mls/hr Q10H IV Last administered on 12/08/18at 06:01; Start 12/07/18 at 16:13 Ondansetron HCl (Zofran) 4 mg PRN Q4HRS PRN IV NAUSEA/VOMITING; Start 12/07/18 at 16:15 Acetaminophen (Tylenol) 650 mg PRN Q4HRS PRN PO TEMP OVER 100.4F OR MILD PAIN; Start 12/07/18 at 16:15 Clonidine HCl (Catapres) 0.1 mg PRN Q6HRS PRN PO SBP>160 OR DBP>90; Start 12/07/18 at 16:15 Docusate Sodium (Colace) 100 mg PRN BID PRN PO CONSTIPATION; Start 12/07/18 at 16:15 Albuterol Sulfate (Ventolin Neb Soln) 2.5 mg PRN Q4HRS PRN NEB SHORTNESS OF BREATH; Start 12/07/18 at 16:15 Guaifenesin (Robitussin) 200 mg PRN Q4HRS PRN PO COUGH; Start 12/07/18 at 16:15 Lorazepam (Ativan) 0.5 mg PRN Q4HRS PRN PO ANXIETY / AGITATION; Start 12/07/18 at 16:15 Enoxaparin Sodium (Lovenox 40mg Syringe) 40 mg DAILY SQ ; Start 12/08/18 at 09:00 Cefazolin Sodium (Ancef) 1 gm Q8HRS IVP Last administered on 12/08/18at 05:55; Start 12/07/18 at 16:30 Diltiazem HCl (Cardizem 24hr Cd) 240 mg DAILY PO ; Start 12/08/18 at 09:00 Fluticasone Propionate (Flonase) 1 spray BID NS Last administered on 12/07/18at 21:18; Start 12/07/18 at 21:00 Furosemide (Lasix) 40 mg DAILY PO ; Start 12/08/18 at 09:00 Ketoconazole (Nizoral 2% Topical) 1 raven DAILY TP Last administered on 12/07/18at 21:19; Start 12/08/18 at 09:00 Levothyroxine Sodium (Synthroid) 100 mcg DAILY06 PO Last administered on 12/08/18at 05:53; Start 12/08/18 at 06:00 Lisinopril (Prinivil) 5 mg DAILY PO ; Start 12/08/18 at 09:00 Metoprolol Tartrate (Lopressor) 50 mg BID PO Last administered on 12/07/18at 21:35; Start 12/07/18 at 21:00 Potassium Chloride (Klor-Con) 10 meq DAILY PO ; Start 12/08/18 at 09:00 Timolol Maleate (Timoptic 0.5% [facility]) 1 drop BID OU Last administered on 12/07/18at 21:18; Start 12/07/18 at 21:00 Triamcinolone Acetonide (Kenalog 0.1%) 1 raven TID TP Last administered on 12/07/18 21:19; Start 12/07/18 at 21:00 Vitamin A/Vitamin D (Vitamin A & D Ointment) 1 raven BID TP Last administered on 12/07/18at 21:00; Start 12/07/18 at 21:00 Atorvastatin Calcium (Lipitor) 80 mg DAILY PO ; Start 12/08/18 at 09:00 Dorzolamide HCl (Trusopt) 1 drop BID OU Last administered on 12/07/18at 21:19; Start 12/07/18 at 21:00 Duloxetine HCl (Cymbalta) 60 mg DAILY PO ; Start 12/08/18 at 09:00 Glipizide (Glucotrol) 10 mg BIDBFRMEAL PO Last administered on 12/07/18at 19:37; Start 12/07/18 at 19:00 Multivitamins (Thera M Plus) 1 tab DAILY PO ; Start 12/08/18 at 09:00 Warfarin Sodium (Coumadin Per Pharmacy) 1 each PRN DAILY PRN MC SEE COMMENTS Last administered on 12/07/18at 19:22; Start 12/07/18 at 18:45 Insulin Glargine (Lantus Syringe) 25 unit QHS SQ Last administered on 12/07/18at 21:34; Start 12/07/18 at 21:00 Warfarin Sodium (Coumadin) 7.5 mg 1X ONCE PO Last administered on 12/07/18at 19:37; Start 12/07/18 at 20:00; Stop 12/07/18 at 20:01; Status DC Insulin Human Lispro (HumaLOG) 0-9 UNITS TIDWMEALS SQ ; Start 12/08/18 at 08:00 Dextrose (Dextrose 50%-Water Syringe) 12.5 gm PRN Q15MIN PRN IV SEE COMMENTS; Start 12/08/18 at 08:00; Status UNV Active Scripts Active Reported Warfarin Sodium 4 Mg Tablet 4 Mg PO DAILY Warfarin Sodium 3 Mg Tablet 3 Mg PO DAILY Atorvastatin Calcium 80 Mg Tablet 1 Tab PO DAILY Diltiazem 24HR Cd (Diltiazem Hcl) 120 Mg Cap.er.24h 2 Cap PO DAILY 30 Days Cymbalta (Duloxetine Hcl) 60 Mg Capsule.dr 1 Cap PO DAILY Fluticasone Propionate Nasal Ramer (Fluticasone Propionate) 16 Gm Ramer.susp 1 Ramer NS BID Glipizide 10 Mg Tablet 1 Tab PO BID Lasix (Furosemide) 40 Mg Tablet 1 Tab PO DAILY 30 Days Levothyroxine Sodium 100 Mcg Tablet 1 Tab PO DAILY Lisinopril 5 Mg Tablet 1 Tab PO DAILY Metformin Hcl 1,000 Mg Tablet 1,000 Mg PO BIDWMEALS Metoprolol Tartrate 50 Mg Tablet 1 Tab PO BID Potassium Chloride 10 Meq Tab.sr.24h 10 Meq PO DAILY Timolol Maleate 5 Ml Drops 1 Drop EACHEYE BID Triamcinolone Acetonide 0.1% Oint (Triamcinolone Acetonide) 15 Gm Oint...g. 1 Raven TP TID MIX WITH EUCERIN DIRECTED BY PHYSICIAN A and D Ointment (Vits A and D/White Pet/Lanolin) 42.5 Gm Oint...g. 42.5 Gm TP BID Dorzolamide-Timolol Eye Drops (Dorzolamide Hcl/Timolol Maleat) 10 Ml Drops 1 Drop EACHEYE BID Metformin Hcl 500 Mg Tablet 500 Mg PO NOON Multivitamins (Multivitamin) 1 Each Tablet 1 Tab PO DAILY Ketoconazole 15 Gm Cream..g. 1 Raven TP DAILY Allergies Allergies: Coded Allergies: tetracycline (Verified Allergy, Intermediate, rash, 12/07/18) ROS General: YES: Fatigue PSYCHOLOGICAL ROS: No: Anxiety, Behavioral Disorder, Concentration difficultie, Decreased libido, Depression, Disorientation, Hallucinations, Hostility, Irritablity, Memory difficulties, Mood Swings, Obsessive thoughts, Physical abuse, Sexual abuse, Sleep disturbances, Suicidal ideation, Other Eyes: No Blurry vision, No Decreased vision, No Double vision, No Dry eyes, No Excessive tearing, No Eye Pain, No Itchy Eyes, No Loss of vision, No Photophobia, No Scotomata, No Uses contacts, No Uses glasses, No Other HEENT: No: Heacaches, Visual Changes, Hearing change, Nasal congestion, Nasal discharge, Oral lesions, Sinus pain, Sore Throat, Epistaxis, Sneezing, Snoring, Tinnitus, Vertigo, Vocal changes, Other ALLERGY AND IMMUNOLOGY: No: Hives, Insect Bite Sensitivity, Itchy/Watery Eyes, Nasal Congestion, Post Nasal Drip, Seasonal Allergies, Other Hematological and Lymphatic: No: Bleeding Problems, Blood Clots, Blood Transfusions, Brusing, Night Sweats, Pallor, Swollen Lymph Nodes, Other ENDOCRINE: No: Breast Changes, Galactorrhea, Hair Pattern Changes, Hot Flashes, Malaise/lethargy, Mood Swings, Palpitations, Polydipsia/polyuria, Skin Changes, Temperature Intolerance, Unexpected Weight Changes, Other Respiratory: No: Cough, Hemoptysis, Orthopnea, Pleuritic Pain, Shortness of breath, SOB with excertion, Sputum Changes, Stridor, Tachypnea, Wheezing, Other Cardiovascular: No Chest Pain, No Palpitations, No Orthopnea, No Paroxysmal Noc. Dyspnea, No Edema, No Lt Headedness, No Other Gastrointestinal: No Nausea, No Vomiting, No Abdominal Pain, No Diarrhea, No Constipation, No Melena, No Hematochezia, No Other Genitourinary: No Dysuria, No Frequency, No Incontinence, No Hematuria, No Retention, No Discharge, No Urgency, No Pain, No Flank Pain, No Other, No , No , No , No , No , No , No Musculoskeletal: Yes Pain In: (left calf region) Neurological: No Behavorial Changes, No Bowel/Bladder ControlChng, No Confusion, No Dizziness, No Gait Disturbance, No Headaches, No Impaired Coord/balance, No Memory Loss, No Numbness/Tingling, No Seizures, No Speech Problems, No Tremors, No Visual Changes, No Weakness, No Other Skin: Yes Rash Vitals VITALS Vital Signs Date Time Temp Pulse Resp B/P (MAP) Pulse Ox O2 Delivery O2 Flow Rate FiO2 12/08/18 07:00 98.3 87 18 144/76 (98) 95 Room Air 98.3 Labs Labs Laboratory Tests Test 12/07/18 11:46 12/07/18 16:55 12/07/18 20:44 12/08/18 04:25 White Blood Count 5.4 x10^3/uL (4.0-11.0) Red Blood Count 4.80 x10^6/uL (4.30-5.70) Hemoglobin 14.8 g/dL (13.0-17.5) Hematocrit 43.9 % (39.0-53.0) Mean Corpuscular Volume 91 fL (79-100) Mean Corpuscular Hemoglobin 31 pg (25-35) Mean Corpuscular Hemoglobin Concent 34 g/dL (31-37) Red Cell Distribution Width 13.2 % (11.5-14.5) Platelet Count 136 x10^3/uL (140-400) Neutrophils (%) (Auto) 55 % (31-73) Lymphocytes (%) (Auto) 27 % (24-48) Monocytes (%) (Auto) 13 % (0-9) Eosinophils (%) (Auto) 4 % (0-3) Basophils (%) (Auto) 1 % (0-3) Neutrophils # (Auto) 3.0 x10^3/uL (1.8-7.7) Lymphocytes # (Auto) 1.5 x10^3/uL (1.0-4.8) Monocytes # (Auto) 0.7 x10^3/uL (0.0-1.1) Eosinophils # (Auto) 0.2 x10^3/uL (0.0-0.7) Basophils # (Auto) 0.0 x10^3/uL (0.0-0.2) Platelet Estimate Adequate (ADEQUATE) Large Platelets Present Prothrombin Time 19.8 SEC (11.7-14.0) 20.9 SEC (11.7-14.0) Prothromb Time International Ratio 1.7 (0.8-1.1) 1.8 (0.8-1.1) Sodium Level 141 mmol/L (136-145) Potassium Level 4.3 mmol/L (3.5-5.1) Chloride Level 103 mmol/L (98-107) Carbon Dioxide Level 31 mmol/L (21-32) Anion Gap 7 (6-14) Blood Urea Nitrogen 18 mg/dL (8-26) Creatinine 1.1 mg/dL (0.7-1.3) Estimated GFR (Cockcroft-Gault) 68.5 BUN/Creatinine Ratio 16 (6-20) Glucose Level 166 mg/dL (70-99) Lactic Acid Level 0.7 mmol/L (0.4-2.0) Calcium Level 9.0 mg/dL (8.5-10.1) Total Bilirubin 0.8 mg/dL (0.2-1.0) Aspartate Amino Transf (AST/SGOT) 27 U/L (15-37) Alanine Aminotransferase (ALT/SGPT) 32 U/L (16-63) Alkaline Phosphatase 94 U/L (46-116) Total Protein 7.9 g/dL (6.4-8.2) Albumin 3.7 g/dL (3.4-5.0) Albumin/Globulin Ratio 0.9 (1.0-1.7) Glucose (Fingerstick) 206 mg/dL (70-99) 222 mg/dL (70-99) Test 12/08/18 07:32 Glucose (Fingerstick) 115 mg/dL (70-99) Laboratory Tests Test 12/07/18 11:46 12/07/18 16:55 12/07/18 20:44 12/08/18 04:25 White Blood Count 5.4 x10^3/uL (4.0-11.0) Red Blood Count 4.80 x10^6/uL (4.30-5.70) Hemoglobin 14.8 g/dL (13.0-17.5) Hematocrit 43.9 % (39.0-53.0) Mean Corpuscular Volume 91 fL (79-100) Mean Corpuscular Hemoglobin 31 pg (25-35) Mean Corpuscular Hemoglobin Concent 34 g/dL (31-37) Red Cell Distribution Width 13.2 % (11.5-14.5) Platelet Count 136 x10^3/uL (140-400) Neutrophils (%) (Auto) 55 % (31-73) Lymphocytes (%) (Auto) 27 % (24-48) Monocytes (%) (Auto) 13 % (0-9) Eosinophils (%) (Auto) 4 % (0-3) Basophils (%) (Auto) 1 % (0-3) Neutrophils # (Auto) 3.0 x10^3/uL (1.8-7.7) Lymphocytes # (Auto) 1.5 x10^3/uL (1.0-4.8) Monocytes # (Auto) 0.7 x10^3/uL (0.0-1.1) Eosinophils # (Auto) 0.2 x10^3/uL (0.0-0.7) Basophils # (Auto) 0.0 x10^3/uL (0.0-0.2) Platelet Estimate Adequate (ADEQUATE) Large Platelets Present Prothrombin Time 19.8 SEC (11.7-14.0) 20.9 SEC (11.7-14.0) Prothromb Time International Ratio 1.7 (0.8-1.1) 1.8 (0.8-1.1) Sodium Level 141 mmol/L (136-145) Potassium Level 4.3 mmol/L (3.5-5.1) Chloride Level 103 mmol/L (98-107) Carbon Dioxide Level 31 mmol/L (21-32) Anion Gap 7 (6-14) Blood Urea Nitrogen 18 mg/dL (8-26) Creatinine 1.1 mg/dL (0.7-1.3) Estimated GFR (Cockcroft-Gault) 68.5 BUN/Creatinine Ratio 16 (6-20) Glucose Level 166 mg/dL (70-99) Lactic Acid Level 0.7 mmol/L (0.4-2.0) Calcium Level 9.0 mg/dL (8.5-10.1) Total Bilirubin 0.8 mg/dL (0.2-1.0) Aspartate Amino Transf (AST/SGOT) 27 U/L (15-37) Alanine Aminotransferase (ALT/SGPT) 32 U/L (16-63) Alkaline Phosphatase 94 U/L (46-116) Total Protein 7.9 g/dL (6.4-8.2) Albumin 3.7 g/dL (3.4-5.0) Albumin/Globulin Ratio 0.9 (1.0-1.7) Glucose (Fingerstick) 206 mg/dL (70-99) 222 mg/dL (70-99) Test 12/08/18 07:32 Glucose (Fingerstick) 115 mg/dL (70-99) Images Images X-rays are interpreted by myself. Small amount of cortical thickening noted proximal fibular diaphysis. Ultrasound was negative for blood clot Assessment/Plan Assessment/Plan Given his reported history of multiple fractures in his left lower extremity, I do think it very likely that this is an old deformity. Either way it would not require any intervention except for possibly repeat x-rays in a couple of months which given his history again I do not really think is necessary. I do not appreciate any fluctuance on exam. I would follow him clinically for a cellulitis and recommend continued IV antibiotics. He can follow up as an outpatient and orthopedic should there be any concerns, should his clinical course worsen or there be concern for an abscess I would asked that I be reconsult it. SHELLI PAK II, MD Dec 08, 2018 08:44
[2018-12-08] MEDS: LISINOPRIL 5 MG TABLET. PO SCH (08:57)
[2018-12-08] MEDS: DULoxetine HCL 30 MG CAPSULE.DR PO SCH (08:58)
[2018-12-08] MEDS: POTASSIUM CHLORIDE 10 MEQ TABLET.ER. PO SCH (08:58)
[2018-12-08] MEDS: ATORVASTATIN CALCIUM 40 MG TABLET. PO SCH (08:59)
[2018-12-08] MEDS: FLUCONAZOLE 100 MG TABLET. PO SCH (08:59)
[2018-12-08] MEDS: FUROSEMIDE 40 MG TABLET. PO SCH (08:59)
[2018-12-08] MEDS: FLUTICASONE 50MCG/NASAL SPRAY 16GM BOTTLE. NS SCH ×2 (09:00→21:36)
[2018-12-08] MEDS: METOPROLOL TART IMMED RELEASE 50 MG TABLET. PO SCH ×2 (09:00→21:35)
[2018-12-08] MEDS: DORZOLAMIDE 2% OPHTH SOLUTION 10ML BOTTLE. OU SCH ×2 (09:00→21:35)
[2018-12-08] MEDS: MULTIVITAMIN with MINERAL TABLET. PO SCH (09:00)
[2018-12-08] MEDS: VITS A & D/LANOLIN TOPICAL OINTMENT 42GM TUBE. TP SCH ×2 (09:00→21:00)
[2018-12-08] MEDS ORDERED: ENOXAPARIN 40 MG/0.4 ML SYRINGE. SQ SCH (09:00)
[2018-12-08] MEDS: TIMOLOL 0.5% OPHTH SOLUTION 5ML BOTTLE. OU SCH ×2 (09:00→21:36)
[2018-12-08] MEDS: TRIAMCINOLONE ACETONIDE 0.1% TOPICAL OINTMENT 15GM TUBE. TP SCH ×3 (09:00→21:35)
--- NOTE | 2018-12-08 09:41 | PDOC ---
Infectious Disease Note Subjective: Subjective pt says feels ok still has swelling of the LLE ROS: ROS Negative otherwise. Vital Signs: Vital Signs Vital Signs Date Time Temp Pulse Resp B/P (MAP) Pulse Ox O2 Delivery O2 Flow Rate FiO2 12/08/18 09:00 87 144/76 12/08/18 07:00 98.3 18 95 Room Air 98.3 Physical Exam: PHYSICAL EXAM GENERAL: Alert and oriented x 3 male lying in bed comfortably, in no acute distress, pleasant, cooperative. HEENT: Normocephalic, atraumatic, anicteric. No thrush. Oral mucosa moist. NECK: Supple, no JVD. LUNGS: Clear bilaterally. HEART: S1, S2, no murmurs. ABDOMEN: Soft, nontender, nondistended, no rebound, no guarding. DERMATOLOGIC: Warm and dry. No generalized rash except for left lower extremity redness, swelling, tenia onychomycosis. No calf tenderness. BACK: Reveals normal curvature. No CVA tenderness. NEUROLOGIC: Alert and oriented x 3, grossly nonfocal. PSYCHIATRIC: Cooperative, appropriate mood and affect. MUSCULOSKELETAL: No joint swelling. Medications: Inpatient Meds: Current Medications Medications (Trade) Dose Ordered Sig/[place] Start Time Stop Time Status Last Admin Dose Admin Acetaminophen (Tylenol) 650 mg PRN Q4HRS PRN 12/07/18 16:15 Albuterol Sulfate (Ventolin Neb Soln) 2.5 mg PRN Q4HRS PRN 12/07/18 16:15 Atorvastatin Calcium (Lipitor) 80 mg DAILY 12/08/18 09:00 12/08/18 08:59 80 MG Cefazolin Sodium (Ancef) 1 gm Q8HRS 12/07/18 16:30 12/08/18 05:55 1 GM Cefazolin Sodium 1 gm/Dextrose 50 ml @ 100 mls/hr Q8HRS 12/07/18 22:00 UNV Clindamycin Phosphate 50 ml @ 100 mls/hr 1X ONCE 12/07/18 12:00 12/07/18 12:29 DC 12/07/18 12:27 100 MLS/HR Clonidine HCl (Catapres) 0.1 mg PRN Q6HRS PRN 12/07/18 16:15 Dextrose (Dextrose 50%-Water Syringe) 12.5 gm PRN Q15MIN PRN 12/08/18 08:00 UNV Diltiazem HCl (Cardizem 24hr Cd) 240 mg DAILY 12/08/18 09:00 12/08/18 08:58 240 MG Docusate Sodium (Colace) 100 mg PRN BID PRN 12/07/18 16:15 Dorzolamide HCl (Trusopt) 1 drop BID 12/07/18 21:00 12/08/18 09:00 1 DROP Duloxetine HCl (Cymbalta) 60 mg DAILY 12/08/18 09:00 12/08/18 08:58 60 MG Enoxaparin Sodium (Lovenox 40mg Syringe) 40 mg DAILY 12/08/18 09:00 Fluconazole (Diflucan) 200 mg DAILY 12/07/18 16:30 12/08/18 08:59 200 MG Fluticasone Propionate (Flonase) 1 spray BID 12/07/18 21:00 12/08/18 09:00 1 SPRAY Furosemide (Lasix) 40 mg DAILY 12/08/18 09:00 12/08/18 08:59 40 MG Glipizide (Glucotrol) 10 mg BIDBFRMEAL 12/07/18 19:00 12/07/18 19:37 10 MG Guaifenesin (Robitussin) 200 mg PRN Q4HRS PRN 12/07/18 16:15 Influenza Virus Vaccine Quadrival (Afluria Quad 2019-20 (3yr Up) Syringe) 0.5 ml ONCE ONCE 12/07/18 17:00 12/07/18 17:01 DC 12/07/18 17:17 0.5 ML Insulin Glargine (Lantus Syringe) 25 unit QHS 12/07/18 21:00 12/07/18 21:34 25 UNIT Insulin Human Lispro (HumaLOG) 0-9 UNITS TIDWMEALS 12/08/18 08:00 Ketoconazole (Nizoral 2% Topical) 1 zurdo DAILY 12/08/18 09:00 12/07/18 21:19 1 ZURDO Levothyroxine Sodium (Synthroid) 100 mcg DAILY06 12/08/18 06:00 12/08/18 05:53 100 MCG Lisinopril (Prinivil) 5 mg DAILY 12/08/18 09:00 12/08/18 08:57 5 MG Lorazepam (Ativan) 0.5 mg PRN Q4HRS PRN 12/07/18 16:15 Metoprolol Tartrate (Lopressor) 50 mg BID 12/07/18 21:00 12/08/18 09:00 50 MG Multivitamins (Thera M Plus) 1 tab DAILY 12/08/18 09:00 12/08/18 09:00 1 TAB Ondansetron HCl (Zofran) 4 mg PRN Q4HRS PRN 12/07/18 16:15 Potassium Chloride (Klor-Con) 10 meq DAILY 12/08/18 09:00 12/08/18 08:58 10 MEQ Sodium Chloride 1,000 ml @ 100 mls/hr Q10H 12/07/18 16:13 12/08/18 06:01 100 MLS/HR Sodium Chloride (Normal Saline Flush) 3 ml QSHIFT PRN 12/07/18 16:15 Timolol Maleate (Timoptic 0.5% [facility]) 1 drop BID 12/07/18 21:00 12/08/18 09:00 1 DROP Triamcinolone Acetonide (Kenalog 0.1%) 1 zurdo TID 12/07/18 21:00 12/08/18 09:00 1 ZURDO Vancomycin HCl (Vanco Per Pharmacy) 1 each PRN DAILY PRN 12/07/18 15:15 12/07/18 16:17 DC Vancomycin HCl 1 gm/Sodium Chloride 250 ml @ 250 mls/hr Q12H 12/07/18 15:15 UNV Vancomycin HCl 2 gm/Sodium Chloride 500 ml @ 250 mls/hr 1X ONCE 12/07/18 16:00 12/07/18 17:59 DC 12/07/18 17:15 250 MLS/HR Vitamin A/Vitamin D (Vitamin A & D Ointment) 1 zurdo BID 12/07/18 21:00 12/08/18 09:00 1 ZURDO Warfarin Sodium (Coumadin Per Pharmacy) 1 each PRN DAILY PRN 12/07/18 18:45 12/07/18 19:22 1 EACH Warfarin Sodium (Coumadin) 7.5 mg 1X ONCE 12/07/18 20:00 12/07/18 20:01 DC 12/07/18 19:37 7.5 MG Labs: Lab Laboratory Tests Test 12/07/18 11:46 12/07/18 16:55 12/07/18 20:44 12/08/18 04:25 White Blood Count 5.4 x10^3/uL (4.0-11.0) Red Blood Count 4.80 x10^6/uL (4.30-5.70) Hemoglobin 14.8 g/dL (13.0-17.5) Hematocrit 43.9 % (39.0-53.0) Mean Corpuscular Volume 91 fL (79-100) Mean Corpuscular Hemoglobin 31 pg (25-35) Mean Corpuscular Hemoglobin Concent 34 g/dL (31-37) Red Cell Distribution Width 13.2 % (11.5-14.5) Platelet Count 136 x10^3/uL (140-400) Neutrophils (%) (Auto) 55 % (31-73) Lymphocytes (%) (Auto) 27 % (24-48) Monocytes (%) (Auto) 13 % (0-9) Eosinophils (%) (Auto) 4 % (0-3) Basophils (%) (Auto) 1 % (0-3) Neutrophils # (Auto) 3.0 x10^3/uL (1.8-7.7) Lymphocytes # (Auto) 1.5 x10^3/uL (1.0-4.8) Monocytes # (Auto) 0.7 x10^3/uL (0.0-1.1) Eosinophils # (Auto) 0.2 x10^3/uL (0.0-0.7) Basophils # (Auto) 0.0 x10^3/uL (0.0-0.2) Platelet Estimate Adequate (ADEQUATE) Large Platelets Present Prothrombin Time 19.8 SEC (11.7-14.0) 20.9 SEC (11.7-14.0) Prothromb Time International Ratio 1.7 (0.8-1.1) 1.8 (0.8-1.1) Sodium Level 141 mmol/L (136-145) Potassium Level 4.3 mmol/L (3.5-5.1) Chloride Level 103 mmol/L (98-107) Carbon Dioxide Level 31 mmol/L (21-32) Anion Gap 7 (6-14) Blood Urea Nitrogen 18 mg/dL (8-26) Creatinine 1.1 mg/dL (0.7-1.3) Estimated GFR (Cockcroft-Gault) 68.5 BUN/Creatinine Ratio 16 (6-20) Glucose Level 166 mg/dL (70-99) Lactic Acid Level 0.7 mmol/L (0.4-2.0) Calcium Level 9.0 mg/dL (8.5-10.1) Total Bilirubin 0.8 mg/dL (0.2-1.0) Aspartate Amino Transf (AST/SGOT) 27 U/L (15-37) Alanine Aminotransferase (ALT/SGPT) 32 U/L (16-63) Alkaline Phosphatase 94 U/L (46-116) Total Protein 7.9 g/dL (6.4-8.2) Albumin 3.7 g/dL (3.4-5.0) Albumin/Globulin Ratio 0.9 (1.0-1.7) Glucose (Fingerstick) 206 mg/dL (70-99) 222 mg/dL (70-99) Test 12/08/18 07:32 Glucose (Fingerstick) 115 mg/dL (70-99) Objective: Assessment: 1. Left lower extremity cellulitis, was on clindamycin as outpatient. 2. Tinea. 3. Diabetes mellitus. 4. Poor social situation. Plan: Plan of Care Cefazolin Micafungin Elevate LLE Follow up labs and cultures. Continue supportive care. Optimal edema control. MARTHA MUÑOZ MD Dec 08, 2018 09:41
[2018-12-08 11:00] VITALS: BP 142/71
--- NOTE | 2018-12-08 11:28 | PDOC ---
PROGRESS NOTES Chief Complaint Chief Complaint left leg cellulitis, failed OP clindamycin HTN, controlled DM 2 - relatively ok, unknown hgba1c Recent incarceration x 7 yrs - now in snf house PRosthetic Aortic valve - goal INR 2.5-3.5 SUbtherapeutic INR Obesity BMI 36.5 History of Present Illness History of Present Illness left leg about the same per his account INR 1.5 and goal INR is 2.5- 3.5 bec of titanium AV (done 6 yrs ago) VS ok BS inc now, but this AM was good ON lasix 40 at home, cardizem etc - which we have renewed Claims on 25 units short acting and 25 long acting insulin (but i only see long acting on file) PLAn: Leg elevation IV vanc and cefazolin per ID Start some glyburide Shift to high dose SSI MAy check hgba1c Keep 25 units qhs Ortho note reveiwed - signed out and agree FUrther recs pending course BAkc to snf uose on dc FULL CODE follow cxs Vitals Vitals Vital Signs Date Time Temp Pulse Resp B/P (MAP) Pulse Ox O2 Delivery O2 Flow Rate FiO2 12/08/18 09:00 87 144/76 12/08/18 08:30 Room Air 12/08/18 07:00 98.3 18 95 98.3 Physical Exam Physical Exam GENERAL: Alert and oriented x 3 male lying in bed comfortably, in no acute distress, pleasant, cooperative. HEENT: Normocephalic, atraumatic, anicteric. No thrush. Oral mucosa moist. NECK: Supple, no JVD. LUNGS: Clear bilaterally. HEART: S1, S2, no murmurs. ABDOMEN: Soft, nontender, nondistended, no rebound, no guarding. DERMATOLOGIC: Warm and dry. No generalized rash except for left lower extremity redness, swelling, tenia onychomycosis. No calf tenderness. BACK: Reveals normal curvature. No CVA tenderness. NEUROLOGIC: Alert and oriented x 3, grossly nonfocal. PSYCHIATRIC: Cooperative, appropriate mood and affect. MUSCULOSKELETAL: No joint swelling. General: Alert, Oriented X3, Cooperative, mild distress Abdomen: Normal bowel sounds, Soft Extremities: No cyanosis Labs LABS Laboratory Tests Test 12/07/18 11:46 12/07/18 16:55 12/07/18 20:44 10/24/19 04:25 White Blood Count 5.4 x10^3/uL (4.0-11.0) Red Blood Count 4.80 x10^6/uL (4.30-5.70) Hemoglobin 14.8 g/dL (13.0-17.5) Hematocrit 43.9 % (39.0-53.0) Mean Corpuscular Volume 91 fL (79-100) Mean Corpuscular Hemoglobin 31 pg (25-35) Mean Corpuscular Hemoglobin Concent 34 g/dL (31-37) Red Cell Distribution Width 13.2 % (11.5-14.5) Platelet Count 136 x10^3/uL (140-400) Neutrophils (%) (Auto) 55 % (31-73) Lymphocytes (%) (Auto) 27 % (24-48) Monocytes (%) (Auto) 13 % (0-9) Eosinophils (%) (Auto) 4 % (0-3) Basophils (%) (Auto) 1 % (0-3) Neutrophils # (Auto) 3.0 x10^3/uL (1.8-7.7) Lymphocytes # (Auto) 1.5 x10^3/uL (1.0-4.8) Monocytes # (Auto) 0.7 x10^3/uL (0.0-1.1) Eosinophils # (Auto) 0.2 x10^3/uL (0.0-0.7) Basophils # (Auto) 0.0 x10^3/uL (0.0-0.2) Platelet Estimate Adequate (ADEQUATE) Large Platelets Present Prothrombin Time 19.8 SEC (11.7-14.0) 20.9 SEC (11.7-14.0) Prothromb Time International Ratio 1.7 (0.8-1.1) 1.8 (0.8-1.1) Sodium Level 141 mmol/L (136-145) Potassium Level 4.3 mmol/L (3.5-5.1) Chloride Level 103 mmol/L (98-107) Carbon Dioxide Level 31 mmol/L (21-32) Anion Gap 7 (6-14) Blood Urea Nitrogen 18 mg/dL (8-26) Creatinine 1.1 mg/dL (0.7-1.3) Estimated GFR (Cockcroft-Gault) 68.5 BUN/Creatinine Ratio 16 (6-20) Glucose Level 166 mg/dL (70-99) Lactic Acid Level 0.7 mmol/L (0.4-2.0) Calcium Level 9.0 mg/dL (8.5-10.1) Total Bilirubin 0.8 mg/dL (0.2-1.0) Aspartate Amino Transf (AST/SGOT) 27 U/L (15-37) Alanine Aminotransferase (ALT/SGPT) 32 U/L (16-63) Alkaline Phosphatase 94 U/L (46-116) Total Protein 7.9 g/dL (6.4-8.2) Albumin 3.7 g/dL (3.4-5.0) Albumin/Globulin Ratio 0.9 (1.0-1.7) Glucose (Fingerstick) 206 mg/dL (70-99) 222 mg/dL (70-99) Test 12/08/18 07:32 Glucose (Fingerstick) 115 mg/dL (70-99) Review of Systems Review of Systems 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 Labs Laboratory Tests Test 12/07/18 11:46 12/07/18 16:55 12/07/18 20:44 12/08/18 04:25 White Blood Count 5.4 x10^3/uL (4.0-11.0) Red Blood Count 4.80 x10^6/uL (4.30-5.70) Hemoglobin 14.8 g/dL (13.0-17.5) Hematocrit 43.9 % (39.0-53.0) Mean Corpuscular Volume 91 fL (79-100) Mean Corpuscular Hemoglobin 31 pg (25-35) Mean Corpuscular Hemoglobin Concent 34 g/dL (31-37) Red Cell Distribution Width 13.2 % (11.5-14.5) Platelet Count 136 x10^3/uL (140-400) Neutrophils (%) (Auto) 55 % (31-73) Lymphocytes (%) (Auto) 27 % (24-48) Monocytes (%) (Auto) 13 % (0-9) Eosinophils (%) (Auto) 4 % (0-3) Basophils (%) (Auto) 1 % (0-3) Neutrophils # (Auto) 3.0 x10^3/uL (1.8-7.7) Lymphocytes # (Auto) 1.5 x10^3/uL (1.0-4.8) Monocytes # (Auto) 0.7 x10^3/uL (0.0-1.1) Eosinophils # (Auto) 0.2 x10^3/uL (0.0-0.7) Basophils # (Auto) 0.0 x10^3/uL (0.0-0.2) Platelet Estimate Adequate (ADEQUATE) Large Platelets Present Prothrombin Time 19.8 SEC (11.7-14.0) 20.9 SEC (11.7-14.0) Prothromb Time International Ratio 1.7 (0.8-1.1) 1.8 (0.8-1.1) Sodium Level 141 mmol/L (136-145) Potassium Level 4.3 mmol/L (3.5-5.1) Chloride Level 103 mmol/L (98-107) Carbon Dioxide Level 31 mmol/L (21-32) Anion Gap 7 (6-14) Blood Urea Nitrogen 18 mg/dL (8-26) Creatinine 1.1 mg/dL (0.7-1.3) Estimated GFR (Cockcroft-Gault) 68.5 BUN/Creatinine Ratio 16 (6-20) Glucose Level 166 mg/dL (70-99) Lactic Acid Level 0.7 mmol/L (0.4-2.0) Calcium Level 9.0 mg/dL (8.5-10.1) Total Bilirubin 0.8 mg/dL (0.2-1.0) Aspartate Amino Transf (AST/SGOT) 27 U/L (15-37) Alanine Aminotransferase (ALT/SGPT) 32 U/L (16-63) Alkaline Phosphatase 94 U/L (46-116) Total Protein 7.9 g/dL (6.4-8.2) Albumin 3.7 g/dL (3.4-5.0) Albumin/Globulin Ratio 0.9 (1.0-1.7) Glucose (Fingerstick) 206 mg/dL (70-99) 222 mg/dL (70-99) Test 12/08/18 07:32 Glucose (Fingerstick) 115 mg/dL (70-99) Laboratory Tests Test 12/07/18 11:46 12/07/18 16:55 12/07/18 20:44 12/08/18 04:25 White Blood Count 5.4 x10^3/uL (4.0-11.0) Red Blood Count 4.80 x10^6/uL (4.30-5.70) Hemoglobin 14.8 g/dL (13.0-17.5) Hematocrit 43.9 % (39.0-53.0) Mean Corpuscular Volume 91 fL (79-100) Mean Corpuscular Hemoglobin 31 pg (25-35) Mean Corpuscular Hemoglobin Concent 34 g/dL (31-37) Red Cell Distribution Width 13.2 % (11.5-14.5) Platelet Count 136 x10^3/uL (140-400) Neutrophils (%) (Auto) 55 % (31-73) Lymphocytes (%) (Auto) 27 % (24-48) Monocytes (%) (Auto) 13 % (0-9) Eosinophils (%) (Auto) 4 % (0-3) Basophils (%) (Auto) 1 % (0-3) Neutrophils # (Auto) 3.0 x10^3/uL (1.8-7.7) Lymphocytes # (Auto) 1.5 x10^3/uL (1.0-4.8) Monocytes # (Auto) 0.7 x10^3/uL (0.0-1.1) Eosinophils # (Auto) 0.2 x10^3/uL (0.0-0.7) Basophils # (Auto) 0.0 x10^3/uL (0.0-0.2) Platelet Estimate Adequate (ADEQUATE) Large Platelets Present Prothrombin Time 19.8 SEC (11.7-14.0) 20.9 SEC (11.7-14.0) Prothromb Time International Ratio 1.7 (0.8-1.1) 1.8 (0.8-1.1) Sodium Level 141 mmol/L (136-145) Potassium Level 4.3 mmol/L (3.5-5.1) Chloride Level 103 mmol/L (98-107) Carbon Dioxide Level 31 mmol/L (21-32) Anion Gap 7 (6-14) Blood Urea Nitrogen 18 mg/dL (8-26) Creatinine 1.1 mg/dL (0.7-1.3) Estimated GFR (Cockcroft-Gault) 68.5 BUN/Creatinine Ratio 16 (6-20) Glucose Level 166 mg/dL (70-99) Lactic Acid Level 0.7 mmol/L (0.4-2.0) Calcium Level 9.0 mg/dL (8.5-10.1) Total Bilirubin 0.8 mg/dL (0.2-1.0) Aspartate Amino Transf (AST/SGOT) 27 U/L (15-37) Alanine Aminotransferase (ALT/SGPT) 32 U/L (16-63) Alkaline Phosphatase 94 U/L (46-116) Total Protein 7.9 g/dL (6.4-8.2) Albumin 3.7 g/dL (3.4-5.0) Albumin/Globulin Ratio 0.9 (1.0-1.7) Glucose (Fingerstick) 206 mg/dL (70-99) 222 mg/dL (70-99) Test 12/08/18 07:32 Glucose (Fingerstick) 115 mg/dL (70-99) Medications Current Medications Sodium Chloride 1,000 ml @ 1,000 mls/hr 1X ONCE IV Last administered on 12/07/18at 12:27; Start 12/07/18 at 12:00; Stop 12/07/18 at 12:59; Status DC Clindamycin Phosphate 50 ml @ 100 mls/hr 1X ONCE IV Last administered on 12/07/18at 12:27; Start 12/07/18 at 12:00; Stop 12/07/18 at 12:29; Status DC Vancomycin HCl 1 gm/Sodium Chloride 250 ml @ 250 mls/hr Q12H IV ; Start 12/07/18 at 15:15; Status UNV Vancomycin HCl 2 gm/Sodium Chloride 500 ml @ 250 mls/hr 1X ONCE IV Last administered on 12/07/18at 17:15; Start 12/07/18 at 16:00; Stop 12/07/18 at 17:59; Status DC Vancomycin HCl (Vanco Per Pharmacy) 1 each PRN DAILY PRN MC SEE COMMENTS; Start 12/07/18 at 15:15; Stop 12/07/18 at 16:17; Status DC Influenza Virus Vaccine Quadrival (Afluria Quad 2019-20 (3yr Up) Syringe) 0.5 ml ONCE ONCE VAX IM Last administered on 12/07/18at 17:17; Start 12/07/18 at 17:00; Stop 12/07/18 at 17:01; Status DC Fluconazole (Diflucan) 200 mg DAILY PO Last administered on 12/08/18at 08:59; Start 12/07/18 at 16:30 Cefazolin Sodium 1 gm/Dextrose 50 ml @ 100 mls/hr Q8HRS IV ; Start 12/07/18 at 22:00; Status UNV Insulin Human Lispro (HumaLOG) 0-5 UNITS TIDWMEALS SQ Last administered on 12/07/18at 17:22; Start 12/07/18 at 17:00; Stop 12/08/18 at 07:54; Status DC Dextrose (Dextrose 50%-Water Syringe) 12.5 gm PRN Q15MIN PRN IV SEE COMMENTS; Start 12/07/18 at 16:15 Sodium Chloride (Normal Saline Flush) 3 ml QSHIFT PRN IV AFTER MEDS AND BLOOD DRAWS; Start 12/07/18 at 16:15 Sodium Chloride 1,000 ml @ 100 mls/hr Q10H IV Last administered on 12/08/18at 06:01; Start 12/07/18 at 16:13 Ondansetron HCl (Zofran) 4 mg PRN Q4HRS PRN IV NAUSEA/VOMITING; Start 12/07/18 at 16:15 Acetaminophen (Tylenol) 650 mg PRN Q4HRS PRN PO TEMP OVER 100.4F OR MILD PAIN; Start 12/07/18 at 16:15 Clonidine HCl (Catapres) 0.1 mg PRN Q6HRS PRN PO SBP>160 OR DBP>90; Start 12/07/18 at 16:15 Docusate Sodium (Colace) 100 mg PRN BID PRN PO CONSTIPATION; Start 12/07/18 at 16:15 Albuterol Sulfate (Ventolin Neb Soln) 2.5 mg PRN Q4HRS PRN NEB SHORTNESS OF BREATH; Start 12/07/18 at 16:15 Guaifenesin (Robitussin) 200 mg PRN Q4HRS PRN PO COUGH; Start 12/07/18 at 16:15 Lorazepam (Ativan) 0.5 mg PRN Q4HRS PRN PO ANXIETY / AGITATION; Start 12/07/18 at 16:15 Enoxaparin Sodium (Lovenox 40mg Syringe) 40 mg DAILY SQ ; Start 12/08/18 at 09:00 Cefazolin Sodium (Ancef) 1 gm Q8HRS IVP Last administered on 12/08/18 05:55; Start 12/07/18 at 16:30 Diltiazem HCl (Cardizem 24hr Cd) 240 mg DAILY PO Last administered on 12/08/18 08:58; Start 12/08/18 at 09:00 Fluticasone Propionate (Flonase) 1 spray BID NS Last administered on 12/08/18 09:00; Start 12/07/18 at 21:00 Furosemide (Lasix) 40 mg DAILY PO Last administered on 12/08/18 08:59; Start 12/08/18 at 09:00 Ketoconazole (Nizoral 2% Topical) 1 raven DAILY TP Last administered on 12/07/18 21:19; Start 12/08/18 at 09:00 Levothyroxine Sodium (Synthroid) 100 mcg DAILY06 PO Last administered on 12/08/18 05:53; Start 12/08/18 at 06:00 Lisinopril (Prinivil) 5 mg DAILY PO Last administered on 12/08/18 08:57; Start 12/08/18 at 09:00 Metoprolol Tartrate (Lopressor) 50 mg BID PO Last administered on 12/08/18 09:00; Start 12/07/18 at 21:00 Potassium Chloride (Klor-Con) 10 meq DAILY PO Last administered on 12/08/18 08:58; Start 12/08/18 at 09:00 Timolol Maleate (Timoptic 0.5% [facility]) 1 drop BID OU Last administered on 12/08/18 09:00; Start 12/07/18 at 21:00 Triamcinolone Acetonide (Kenalog 0.1%) 1 raven TID TP Last administered on 12/08/18 09:00; Start 12/07/18 at 21:00 Vitamin A/Vitamin D (Vitamin A & D Ointment) 1 raven BID TP Last administered on 12/08/18 09:00; Start 12/07/18 at 21:00 Atorvastatin Calcium (Lipitor) 80 mg DAILY PO Last administered on 12/08/18 08:59; Start 12/08/18 at 09:00 Dorzolamide HCl (Trusopt) 1 drop BID OU Last administered on 12/08/18 09:00; Start 12/07/18 at 21:00 Duloxetine HCl (Cymbalta) 60 mg DAILY PO Last administered on 12/08/18 08:58; Start 12/08/18 at 09:00 Glipizide (Glucotrol) 10 mg BIDBFRMEAL PO Last administered on 12/07/18 19:37; Start 12/07/18 at 19:00 Multivitamins (Thera M Plus) 1 tab DAILY PO Last administered on 12/08/18 09:00; Start 12/08/18 at 09:00 Warfarin Sodium (Coumadin Per Pharmacy) 1 each PRN DAILY PRN MC SEE COMMENTS Last administered on 12/07/18at 19:22; Start 12/07/18 at 18:45 Insulin Glargine (Lantus Syringe) 25 unit QHS SQ Last administered on 12/07/18 21:34; Start 12/07/18 at 21:00 Warfarin Sodium (Coumadin) 7.5 mg 1X ONCE PO Last administered on 12/07/18 19:37; Start 12/07/18 at 20:00; Stop 12/07/18 at 20:01; Status DC Insulin Human Lispro (HumaLOG) 0-9 UNITS TIDWMEALS SQ ; Start 12/08/18 at 08:00 Dextrose (Dextrose 50%-Water Syringe) 12.5 gm PRN Q15MIN PRN IV SEE COMMENTS; Start 12/08/18 at 08:00; Status UNV Active Scripts Active Reported Warfarin Sodium 4 Mg Tablet 4 Mg PO DAILY Warfarin Sodium 3 Mg Tablet 3 Mg PO DAILY Atorvastatin Calcium 80 Mg Tablet 1 Tab PO DAILY Diltiazem 24HR Cd (Diltiazem Hcl) 120 Mg Cap.er.24h 2 Cap PO DAILY 30 Days Cymbalta (Duloxetine Hcl) 60 Mg Capsule.dr 1 Cap PO DAILY Fluticasone Propionate Nasal [place] (Fluticasone Propionate) 16 Gm [place].susp 1 [place] NS BID Glipizide 10 Mg Tablet 1 Tab PO BID Lasix (Furosemide) 40 Mg Tablet 1 Tab PO DAILY 30 Days Levothyroxine Sodium 100 Mcg Tablet 1 Tab PO DAILY Lisinopril 5 Mg Tablet 1 Tab PO DAILY Metformin Hcl 1,000 Mg Tablet 1,000 Mg PO BIDWMEALS Metoprolol Tartrate 50 Mg Tablet 1 Tab PO BID Potassium Chloride 10 Meq Tab.sr.24h 10 Meq PO DAILY Timolol Maleate 5 Ml Drops 1 Drop EACHEYE BID Triamcinolone Acetonide 0.1% Oint (Triamcinolone Acetonide) 15 Gm Oint...g. 1 Raven TP TID MIX WITH EUCERIN DIRECTED BY PHYSICIAN A and D Ointment (Vits A and D/White Pet/Lanolin) 42.5 Gm Oint...g. 42.5 Gm TP BID Dorzolamide-Timolol Eye Drops (Dorzolamide Hcl/Timolol Maleat) 10 Ml Drops 1 Drop EACHEYE BID Metformin Hcl 500 Mg Tablet 500 Mg PO NOON Multivitamins (Multivitamin) 1 Each Tablet 1 Tab PO DAILY Ketoconazole 15 Gm Cream..g. 1 Raven TP DAILY Vitals/I & O Vital Sign - Last 24 Hours 12/07/18 12/07/18 12/07/18 12/07/18 11:28 12:36 13:06 13:36 Temp 98.6 98.6 Pulse 90 88 84 86 Resp 18 20 16 16 B/P (MAP) 167/94 (118) 146/78 (100) 149/80 (103) 138/71 (93) Pulse Ox 98 95 97 97 O2 Delivery Room Air Room Air Room Air 12/07/18 12/07/18 12/07/18 12/07/18 15:00 18:41 19:00 20:00 Temp 98.0 98.5 98.0 98.5 Pulse 87 96 Resp 19 18 B/P (MAP) 162/93 (116) 146/87 (106) Pulse Ox 95 95 O2 Delivery Room Air Room Air Room Air 12/07/18 12/07/18 12/08/18 12/08/18 21:35 23:00 03:00 07:00 Temp 98.8 98.1 98.3 98.8 98.1 98.3 Pulse 96 91 80 87 Resp 18 18 18 B/P (MAP) 146/87 129/73 (91) 130/69 (89) 144/76 (98) Pulse Ox 92 94 95 O2 Delivery Room Air Room Air 12/08/18 12/08/18 12/08/18 12/08/18 08:30 08:57 08:58 09:00 Pulse 87 87 87 B/P (MAP) 144/76 144/76 144/76 O2 Delivery Room Air Intake and Output 12/07/18 12/07/18 12/08/18 15:00 23:00 07:00 Intake Total 1050 ml 800 ml 120 ml Balance 1050 ml 800 ml 120 ml CHRISTA HOWARD MD Dec 08, 2018 11:28
[2018-12-08] MEDS: glyBURIDE 5 MG TABLET PO SCH ×2 (11:49→17:21)
--- NOTE | 2018-12-08 13:08 | NUR ---
SW following for discharge planning. Discussed with RN, per RN pt is living in a half way house and in 2 weeks will be moving in with his mother. Pt was seen at the wound care clinic recently and was on abx. SW will continue to follow for discharge planning. Pt is self pay, SW to provide resources.
[2018-12-08 15:00] VITALS: BP 133/70
--- NOTE | 2018-12-08 15:05 | NUR ---
Pharmacy Warfarin Dosing Note S: Pharmacy consulted to assist with anticoagulation therapy started O: AUBRIE OSMAN is a 58 year old M with Mechanical Aortic Valve LABS: Last INR: 1.8 Last HGB: 14.8 Last HCT: 43.9 Last PLT: 136 Last dose of 7.5 mg given on 12/07/18 at 1937 Ongoing Drug Interactions: CYMBALTA,DIFLUCAN A:INR of 1.8 is below desired range. Target range for this patient is: 2 -3 P: Warfarin dose: 7.5 mg Today at 1600 Bridge Therapy: LOVENOX 100mg SQ BID Next INR due 12/09/18 AM Pharmacy anticoagulation service will continue to follow. TAMARA CRUM [facility], 12/08/18 [id number]
[2018-12-08] MEDS ORDERED: WARFARIN 7.5 MG TABLET. PO ONE (16:00)
[2018-12-08 19:00] VITALS: BP 143/67
[2018-12-08] MEDS: KETOCONAZOLE 2% TOPICAL CREAM 15GM TUBE. TP SCH (21:35)
[2018-12-08] MEDS: INSULIN GLARGINE SYRINGE. SQ SCH (21:51)
[2018-12-08 22:21] VITALS: BP 149/79
[2018-12-09 00:07] LABS: HEMOGLOBIN A1C 8.1 % (4.8-5.6)
[2018-12-09] MEDS: IV NORMAL SALINE 1000ML BAG 1,000 ML IV SCH ×3 (01:42→12:54)
[2018-12-09 03:00] VITALS: BP 130/73
[2018-12-09 05:50] LABS: BASO # 0.1 x10^3/uL (0.0-0.2); BASO % 1 % (0-3); EOS # 0.2 x10^3/uL (0.0-0.7); EOS % 4 % (0-3); HEMATOCRIT 43.5 % (39.0-53.0); HEMOGLOBIN 14.5 g/dL (13.0-17.5); LYMPH # 1.2 x10^3/uL (1.0-4.8); LYMPH % 22 % (24-48); MEAN CORPUSCULAR HEMOGLOBIN 30 pg (25-35); MEAN CORPUSCULAR HGB CONC 33 g/dL (31-37); MEAN CORPUSCULAR VOLUME 92 fL (79-100); MONO # 0.7 x10^3/uL (0.0-1.1); MONO % 12 % (0-9); NEUT # 3.3 x10^3/uL (1.8-7.7); NEUT % 61 % (31-73); PLATELET COUNT 136 x10^3/uL (140-400); RED BLOOD COUNT 4.75 x10^6/uL (4.30-5.70); RED CELL DISTRIBUTION WIDTH 13.2 % (11.5-14.5); WHITE BLOOD COUNT 5.4 x10^3/uL (4.0-11.0)
[2018-12-09] MEDS: ceFAZolin SODIUM IV Push 1 GM VIAL. IVP SCH ×3 (05:54→21:27)
[2018-12-09] MEDS: LEVOTHYROXINE 100 MCG TABLET PO SCH (05:54)
[2018-12-09 06:01] LABS: PROTHROMBIN TIME PATIENT 19.5 SEC (11.7-14.0)
[2018-12-09 06:21] LABS: CALCIUM 8.8 mg/dL (8.5-10.1); GFR 76.5; POTASSIUM 4.4 mmol/L (3.5-5.1)
[2018-12-09 07:00] VITALS: BP 144/55
[2018-12-09] MEDS: INSULIN LISPRO 300 UNITS/3 ML VIAL. SQ SCH ×3 (08:00→17:00)
[2018-12-09] MEDS: DULoxetine HCL 30 MG CAPSULE.DR PO SCH (08:26)
[2018-12-09] MEDS: ATORVASTATIN CALCIUM 40 MG TABLET. PO SCH (08:26)
[2018-12-09] MEDS: MULTIVITAMIN with MINERAL TABLET. PO SCH (08:27)
[2018-12-09] MEDS: glyBURIDE 5 MG TABLET PO SCH ×2 (08:27→17:15)
[2018-12-09] MEDS: LISINOPRIL 5 MG TABLET. PO SCH (08:27)
[2018-12-09] MEDS: FLUCONAZOLE 100 MG TABLET. PO SCH (08:27)
[2018-12-09] MEDS: FUROSEMIDE 40 MG TABLET. PO SCH (08:28)
[2018-12-09] MEDS: POTASSIUM CHLORIDE 10 MEQ TABLET.ER. PO SCH (08:29)
[2018-12-09] MEDS: METOPROLOL TART IMMED RELEASE 50 MG TABLET. PO SCH ×2 (08:29→21:26)
[2018-12-09] MEDS: FLUTICASONE 50MCG/NASAL SPRAY 16GM BOTTLE. NS SCH ×2 (08:30→21:23)
[2018-12-09] MEDS: TIMOLOL 0.5% OPHTH SOLUTION 5ML BOTTLE. OU SCH ×2 (08:30→21:00)
[2018-12-09] MEDS: DORZOLAMIDE 2% OPHTH SOLUTION 10ML BOTTLE. OU SCH ×2 (08:30→21:00)
[2018-12-09] MEDS: VITS A & D/LANOLIN TOPICAL OINTMENT 42GM TUBE. TP SCH ×2 (08:31→21:00)
[2018-12-09] MEDS: TRIAMCINOLONE ACETONIDE 0.1% TOPICAL OINTMENT 15GM TUBE. TP SCH ×3 (08:31→21:25)
--- NOTE | 2018-12-09 09:51 | PDOC ---
Infectious Disease Note Subjective: Subjective pt says feels ok still has swelling and redness of the LLE ROS: ROS Negative otherwise. Vital Signs: Vital Signs Vital Signs Date Time Temp Pulse Resp B/P (MAP) Pulse Ox O2 Delivery O2 Flow Rate FiO2 12/09/18 08:29 69 130/73 12/09/18 07:00 98.3 16 95 Room Air 98.3 Physical Exam: PHYSICAL EXAM GENERAL: Alert and oriented x 3 male lying in bed comfortably, in no acute distress, pleasant, cooperative. HEENT: Normocephalic, atraumatic, anicteric. No thrush. Oral mucosa moist. NECK: Supple, no JVD. LUNGS: Clear bilaterally. HEART: S1, S2, no murmurs. ABDOMEN: Soft, nontender, nondistended, no rebound, no guarding. DERMATOLOGIC: Warm and dry. No generalized rash except for left lower extremity redness, swelling, tenia onychomycosis. No calf tenderness. BACK: Reveals normal curvature. No CVA tenderness. NEUROLOGIC: Alert and oriented x 3, grossly nonfocal. PSYCHIATRIC: Cooperative, appropriate mood and affect. MUSCULOSKELETAL: No joint swelling. Medications: Inpatient Meds: Current Medications Medications (Trade) Dose Ordered Sig/[place] Start Time Stop Time Status Last Admin Dose Admin Acetaminophen (Tylenol) 650 mg PRN Q4HRS PRN 12/07/18 16:15 Albuterol Sulfate (Ventolin Neb Soln) 2.5 mg PRN Q4HRS PRN 12/07/18 16:15 Atorvastatin Calcium (Lipitor) 80 mg DAILY 12/08/18 09:00 12/09/18 08:26 80 MG Cefazolin Sodium (Ancef) 1 gm Q8HRS 12/07/18 16:30 12/09/18 05:54 1 GM Cefazolin Sodium 1 gm/Dextrose 50 ml @ 100 mls/hr Q8HRS 12/07/18 22:00 UNV Clindamycin Phosphate 50 ml @ 100 mls/hr 1X ONCE 12/07/18 12:00 12/07/18 12:29 DC 12/07/18 12:27 100 MLS/HR Clonidine HCl (Catapres) 0.1 mg PRN Q6HRS PRN 12/07/18 16:15 Dextrose (Dextrose 50%-Water Syringe) 12.5 gm PRN Q15MIN PRN 10/24/19 08:00 UNV Diltiazem HCl (Cardizem 24hr Cd) 240 mg DAILY 12/08/18 09:00 12/09/18 08:27 240 MG Docusate Sodium (Colace) 100 mg PRN BID PRN 12/07/18 16:15 Dorzolamide HCl (Trusopt) 1 drop BID 12/07/18 21:00 12/09/18 08:30 1 DROP Duloxetine HCl (Cymbalta) 60 mg DAILY 12/08/18 09:00 12/09/18 08:26 60 MG Enoxaparin Sodium (Lovenox 100mg Syringe) 100 mg Q12HR 12/08/18 21:00 Enoxaparin Sodium (Lovenox 40mg Syringe) 40 mg DAILY 12/08/18 09:00 12/08/18 11:27 DC Fluconazole (Diflucan) 200 mg DAILY 12/07/18 16:30 12/09/18 08:27 200 MG Fluticasone Propionate (Flonase) 1 spray BID 12/07/18 21:00 12/09/18 08:30 1 SPRAY Furosemide (Lasix) 40 mg DAILY 12/08/18 09:00 12/09/18 08:28 40 MG Glipizide (Glucotrol) 10 mg BIDBFRMEAL 12/07/18 19:00 12/08/18 11:25 DC 12/07/18 19:37 10 MG Glyburide (Diabeta) 5 mg BIDWMEALS 12/08/18 11:30 12/09/18 08:27 5 MG Guaifenesin (Robitussin) 200 mg PRN Q4HRS PRN 12/07/18 16:15 Influenza Virus Vaccine Quadrival (Afluria Quad 2019-20 (3yr Up) Syringe) 0.5 ml ONCE ONCE 12/07/18 17:00 12/07/18 17:01 DC 12/07/18 17:17 0.5 ML Insulin Glargine (Lantus Syringe) 25 unit QHS 12/07/18 21:00 12/08/18 21:51 25 UNIT Insulin Human Lispro (HumaLOG) 0-9 UNITS TIDWMEALS 12/08/18 08:00 12/08/18 17:26 5 UNITS Ketoconazole (Nizoral 2% Topical) 1 zurdo DAILY 12/08/18 09:00 12/08/18 21:35 1 ZURDO Levothyroxine Sodium (Synthroid) 100 mcg DAILY06 12/08/18 06:00 12/09/18 05:54 100 MCG Lisinopril (Prinivil) 5 mg DAILY 12/08/18 09:00 12/09/18 08:27 5 MG Lorazepam (Ativan) 0.5 mg PRN Q4HRS PRN 12/07/18 16:15 Metoprolol Tartrate (Lopressor) 50 mg BID 12/07/18 21:00 12/09/18 08:29 50 MG Multivitamins (Thera M Plus) 1 tab DAILY 12/08/18 09:00 12/09/18 08:27 1 TAB Ondansetron HCl (Zofran) 4 mg PRN Q4HRS PRN 12/07/18 16:15 Potassium Chloride (Klor-Con) 10 meq DAILY 12/08/18 09:00 12/09/18 08:29 10 MEQ Sodium Chloride 1,000 ml @ 100 mls/hr Q10H 12/07/18 16:13 12/09/18 01:42 100 MLS/HR Sodium Chloride (Normal Saline Flush) 3 ml QSHIFT PRN 12/07/18 16:15 Timolol Maleate (Timoptic 0.5% Oph) 1 drop BID 12/07/18 21:00 12/09/18 08:30 1 DROP Triamcinolone Acetonide (Kenalog 0.1%) 1 zurdo TID 12/07/18 21:00 12/09/18 08:31 1 ZURDO Vancomycin HCl (Vanco Per Pharmacy) 1 each PRN DAILY PRN 12/07/18 15:15 12/07/18 16:17 DC Vancomycin HCl 1 gm/Sodium Chloride 250 ml @ 250 mls/hr Q12H 12/07/18 15:15 UNV Vancomycin HCl 2 gm/Sodium Chloride 500 ml @ 250 mls/hr 1X ONCE 12/07/18 16:00 12/07/18 17:59 DC 12/07/18 17:15 250 MLS/HR Vitamin A/Vitamin D (Vitamin A & D Ointment) 1 zurdo BID 12/07/18 21:00 12/09/18 08:31 1 ZURDO Warfarin Sodium (Coumadin Per Pharmacy) 1 each PRN DAILY PRN 12/07/18 18:45 12/08/18 15:05 1 EACH Warfarin Sodium (Coumadin) 7.5 mg 1X WARF ONCE 12/08/18 16:00 12/08/18 16:01 DC 12/08/18 17:22 7.5 MG Labs: Lab Laboratory Tests Test 12/08/18 10:51 12/08/18 16:54 12/08/18 20:12 12/09/18 04:55 Glucose (Fingerstick) 167 mg/dL (70-99) 203 mg/dL (70-99) 270 mg/dL (70-99) White Blood Count 5.4 x10^3/uL (4.0-11.0) Red Blood Count 4.75 x10^6/uL (4.30-5.70) Hemoglobin 14.5 g/dL (13.0-17.5) Hematocrit 43.5 % (39.0-53.0) Mean Corpuscular Volume 92 fL (79-100) Mean Corpuscular Hemoglobin 30 pg (25-35) Mean Corpuscular Hemoglobin Concent 33 g/dL (31-37) Red Cell Distribution Width 13.2 % (11.5-14.5) Platelet Count 136 x10^3/uL (140-400) Neutrophils (%) (Auto) 61 % (31-73) Lymphocytes (%) (Auto) 22 % (24-48) Monocytes (%) (Auto) 12 % (0-9) Eosinophils (%) (Auto) 4 % (0-3) Basophils (%) (Auto) 1 % (0-3) Neutrophils # (Auto) 3.3 x10^3/uL (1.8-7.7) Lymphocytes # (Auto) 1.2 x10^3/uL (1.0-4.8) Monocytes # (Auto) 0.7 x10^3/uL (0.0-1.1) Eosinophils # (Auto) 0.2 x10^3/uL (0.0-0.7) Basophils # (Auto) 0.1 x10^3/uL (0.0-0.2) Erythrocyte Sedimentation Rate 12 (0-15) Prothrombin Time 19.5 SEC (11.7-14.0) Prothromb Time International Ratio 1.7 (0.8-1.1) Sodium Level 142 mmol/L (136-145) Potassium Level 4.4 mmol/L (3.5-5.1) Chloride Level 107 mmol/L (98-107) Carbon Dioxide Level 28 mmol/L (21-32) Anion Gap 7 (6-14) Blood Urea Nitrogen 17 mg/dL (8-26) Creatinine 1.0 mg/dL (0.7-1.3) Estimated GFR (Cockcroft-Gault) 76.5 Glucose Level 98 mg/dL (70-99) Calcium Level 8.8 mg/dL (8.5-10.1) Test 12/09/18 07:07 Glucose (Fingerstick) 96 mg/dL (70-99) Objective: Assessment: 1. Left lower extremity cellulitis, was on clindamycin as outpatient. 2. Tinea. 3. Diabetes mellitus. 4. Poor social situation. Plan: Plan of Care Cefazolin Micafungin Elevate LLE Follow up labs and cultures. Continue supportive care. Optimal edema control. MARTHA MUÑOZ MD Dec 09, 2018 09:51
[2018-12-09 11:00] VITALS: BP 141/68
--- NOTE | 2018-12-09 11:48 | PDOC ---
PROGRESS NOTES Chief Complaint Chief Complaint left leg cellulitis, failed OP clindamycin HTN, controlled DM 2 - relatively ok, unknown [id number] Recent incarceration x 7 yrs - now in penitentiary house PRosthetic Aortic valve - goal INR 2.-3 SUbtherapeutic INR Obesity BMI 36.5 History of Present Illness History of Present Illness INR still subtherapeutic - goal 2-3 mechanical aortic valve Legs better but forging press lever tender BC cooking LAbs great! HE is keeping legs elevated PLAn: Stay tonight then home tmr on PO abx KEep legs elevated BAck to penitentiary house tmr INR goal 2-3 - dw pharmacy AIRTIC VALVE PROSTHETIC - STILL 2-3 goal I started lovenox BID till therapeutic Vitals Vitals Vital Signs Date Time Temp Pulse Resp B/P (MAP) Pulse Ox O2 Delivery O2 Flow Rate FiO2 12/09/18 08:29 69 130/73 12/09/18 07:00 98.3 16 95 Room Air 98.3 Physical Exam Physical Exam GENERAL: Alert and oriented x 3 male lying in bed comfortably, in no acute distress, pleasant, cooperative. HEENT: Normocephalic, atraumatic, anicteric. No thrush. Oral mucosa moist. NECK: Supple, no JVD. LUNGS: Clear bilaterally. HEART: S1, S2, no murmurs. ABDOMEN: Soft, nontender, nondistended, no rebound, no guarding. DERMATOLOGIC: Warm and dry. No generalized rash except for left lower extremity redness, swelling, tenia onychomycosis. No calf tenderness. BACK: Reveals normal curvature. No CVA tenderness. NEUROLOGIC: Alert and oriented x 3, grossly nonfocal. PSYCHIATRIC: Cooperative, appropriate mood and affect. MUSCULOSKELETAL: No joint swelling. General: Alert, Oriented X3, Cooperative, mild distress Abdomen: Normal bowel sounds, Soft Extremities: No cyanosis Labs LABS Laboratory Tests Test 12/08/18 16:54 12/08/18 20:12 12/09/18 04:55 12/09/18 07:07 Glucose (Fingerstick) 203 mg/dL (70-99) 270 mg/dL (70-99) 96 mg/dL (70-99) White Blood Count 5.4 x10^3/uL (4.0-11.0) Red Blood Count 4.75 x10^6/uL (4.30-5.70) Hemoglobin 14.5 g/dL (13.0-17.5) Hematocrit 43.5 % (39.0-53.0) Mean Corpuscular Volume 92 fL (79-100) Mean Corpuscular Hemoglobin 30 pg (25-35) Mean Corpuscular Hemoglobin Concent 33 g/dL (31-37) Red Cell Distribution Width 13.2 % (11.5-14.5) Platelet Count 136 x10^3/uL (140-400) Neutrophils (%) (Auto) 61 % (31-73) Lymphocytes (%) (Auto) 22 % (24-48) Monocytes (%) (Auto) 12 % (0-9) Eosinophils (%) (Auto) 4 % (0-3) Basophils (%) (Auto) 1 % (0-3) Neutrophils # (Auto) 3.3 x10^3/uL (1.8-7.7) Lymphocytes # (Auto) 1.2 x10^3/uL (1.0-4.8) Monocytes # (Auto) 0.7 x10^3/uL (0.0-1.1) Eosinophils # (Auto) 0.2 x10^3/uL (0.0-0.7) Basophils # (Auto) 0.1 x10^3/uL (0.0-0.2) Erythrocyte Sedimentation Rate 12 (0-15) Prothrombin Time 19.5 SEC (11.7-14.0) Prothromb Time International Ratio 1.7 (0.8-1.1) Sodium Level 142 mmol/L (136-145) Potassium Level 4.4 mmol/L (3.5-5.1) Chloride Level 107 mmol/L (98-107) Carbon Dioxide Level 28 mmol/L (21-32) Anion Gap 7 (6-14) Blood Urea Nitrogen 17 mg/dL (8-26) Creatinine 1.0 mg/dL (0.7-1.3) Estimated GFR (Cockcroft-Gault) 76.5 Glucose Level 98 mg/dL (70-99) Calcium Level 8.8 mg/dL (8.5-10.1) Review of Systems Review of Systems some minor leg dc, otherwise, all else 14 pt neg Assessment and Plan Assessmemt and Plan Problems Medical Problems: (1) Cellulitis Status: Acute Comment Review of Relevant I have reviewed the following items rosi (where applicable) has been applied. Labs Laboratory Tests Test 12/07/18 16:55 12/07/18 20:44 12/08/18 04:25 12/08/18 07:32 Glucose (Fingerstick) 206 mg/dL (70-99) 222 mg/dL (70-99) 115 mg/dL (70-99) Prothrombin Time 20.9 SEC (11.7-14.0) Prothromb Time International Ratio 1.8 (0.8-1.1) Hemoglobin A1c 8.1 % (4.8-5.6) Test 12/08/18 10:51 12/08/18 16:54 12/08/18 20:12 12/09/18 04:55 Glucose (Fingerstick) 167 mg/dL (70-99) 203 mg/dL (70-99) 270 mg/dL (70-99) White Blood Count 5.4 x10^3/uL (4.0-11.0) Red Blood Count 4.75 x10^6/uL (4.30-5.70) Hemoglobin 14.5 g/dL (13.0-17.5) Hematocrit 43.5 % (39.0-53.0) Mean Corpuscular Volume 92 fL (79-100) Mean Corpuscular Hemoglobin 30 pg (25-35) Mean Corpuscular Hemoglobin Concent 33 g/dL (31-37) Red Cell Distribution Width 13.2 % (11.5-14.5) Platelet Count 136 x10^3/uL (140-400) Neutrophils (%) (Auto) 61 % (31-73) Lymphocytes (%) (Auto) 22 % (24-48) Monocytes (%) (Auto) 12 % (0-9) Eosinophils (%) (Auto) 4 % (0-3) Basophils (%) (Auto) 1 % (0-3) Neutrophils # (Auto) 3.3 x10^3/uL (1.8-7.7) Lymphocytes # (Auto) 1.2 x10^3/uL (1.0-4.8) Monocytes # (Auto) 0.7 x10^3/uL (0.0-1.1) Eosinophils # (Auto) 0.2 x10^3/uL (0.0-0.7) Basophils # (Auto) 0.1 x10^3/uL (0.0-0.2) Erythrocyte Sedimentation Rate 12 (0-15) Prothrombin Time 19.5 SEC (11.7-14.0) Prothromb Time International Ratio 1.7 (0.8-1.1) Sodium Level 142 mmol/L (136-145) Potassium Level 4.4 mmol/L (3.5-5.1) Chloride Level 107 mmol/L (98-107) Carbon Dioxide Level 28 mmol/L (21-32) Anion Gap 7 (6-14) Blood Urea Nitrogen 17 mg/dL (8-26) Creatinine 1.0 mg/dL (0.7-1.3) Estimated GFR (Cockcroft-Gault) 76.5 Glucose Level 98 mg/dL (70-99) Calcium Level 8.8 mg/dL (8.5-10.1) Test 12/09/18 07:07 Glucose (Fingerstick) 96 mg/dL (70-99) Laboratory Tests Test 12/08/18 16:54 12/08/18 20:12 12/09/18 04:55 12/09/18 07:07 Glucose (Fingerstick) 203 mg/dL (70-99) 270 mg/dL (70-99) 96 mg/dL (70-99) White Blood Count 5.4 x10^3/uL (4.0-11.0) Red Blood Count 4.75 x10^6/uL (4.30-5.70) Hemoglobin 14.5 g/dL (13.0-17.5) Hematocrit 43.5 % (39.0-53.0) Mean Corpuscular Volume 92 fL (79-100) Mean Corpuscular Hemoglobin 30 pg (25-35) Mean Corpuscular Hemoglobin Concent 33 g/dL (31-37) Red Cell Distribution Width 13.2 % (11.5-14.5) Platelet Count 136 x10^3/uL (140-400) Neutrophils (%) (Auto) 61 % (31-73) Lymphocytes (%) (Auto) 22 % (24-48) Monocytes (%) (Auto) 12 % (0-9) Eosinophils (%) (Auto) 4 % (0-3) Basophils (%) (Auto) 1 % (0-3) Neutrophils # (Auto) 3.3 x10^3/uL (1.8-7.7) Lymphocytes # (Auto) 1.2 x10^3/uL (1.0-4.8) Monocytes # (Auto) 0.7 x10^3/uL (0.0-1.1) Eosinophils # (Auto) 0.2 x10^3/uL (0.0-0.7) Basophils # (Auto) 0.1 x10^3/uL (0.0-0.2) Erythrocyte Sedimentation Rate 12 (0-15) Prothrombin Time 19.5 SEC (11.7-14.0) Prothromb Time International Ratio 1.7 (0.8-1.1) Sodium Level 142 mmol/L (136-145) Potassium Level 4.4 mmol/L (3.5-5.1) Chloride Level 107 mmol/L (98-107) Carbon Dioxide Level 28 mmol/L (21-32) Anion Gap 7 (6-14) Blood Urea Nitrogen 17 mg/dL (8-26) Creatinine 1.0 mg/dL (0.7-1.3) Estimated GFR (Cockcroft-Gault) 76.5 Glucose Level 98 mg/dL (70-99) Calcium Level 8.8 mg/dL (8.5-10.1) Microbiology 12/07/18 Blood Culture - Preliminary, Resulted NO GROWTH AFTER 1 DAY Medications Current Medications Sodium Chloride 1,000 ml @ 1,000 mls/hr 1X ONCE IV Last administered on 12/07/18at 12:27; Start 12/07/18 at 12:00; Stop 12/07/18 at 12:59; Status DC Clindamycin Phosphate 50 ml @ 100 mls/hr 1X ONCE IV Last administered on 12/07/18at 12:27; Start 12/07/18 at 12:00; Stop 12/07/18 at 12:29; Status DC Vancomycin HCl 1 gm/Sodium Chloride 250 ml @ 250 mls/hr Q12H IV ; Start 12/07/18 at 15:15; Status UNV Vancomycin HCl 2 gm/Sodium Chloride 500 ml @ 250 mls/hr 1X ONCE IV Last administered on 12/07/18at 17:15; Start 12/07/18 at 16:00; Stop 12/07/18 at 17:59; Status DC Vancomycin HCl (Vanco Per Pharmacy) 1 each PRN DAILY PRN MC SEE COMMENTS; Start 12/07/18 at 15:15; Stop 12/07/18 at 16:17; Status DC Influenza Virus Vaccine Quadrival (Afluria Quad 2019-20 (3yr Up) Syringe) 0.5 ml ONCE ONCE VAX IM Last administered on 12/07/18at 17:17; Start 12/07/18 at 17:00; Stop 12/07/18 at 17:01; Status DC Fluconazole (Diflucan) 200 mg DAILY PO Last administered on 12/09/18at 08:27; Start 12/07/18 at 16:30 Cefazolin Sodium 1 gm/Dextrose 50 ml @ 100 mls/hr Q8HRS IV ; Start 12/07/18 at 22:00; Status UNV Insulin Human Lispro (HumaLOG) 0-5 UNITS TIDWMEALS SQ Last administered on 12/07/18at 17:22; Start 12/07/18 at 17:00; Stop 12/08/18 at 07:54; Status DC Dextrose (Dextrose 50%-Water Syringe) 12.5 gm PRN Q15MIN PRN IV SEE COMMENTS; Start 12/07/18 at 16:15 Sodium Chloride (Normal Saline Flush) 3 ml QSHIFT PRN IV AFTER MEDS AND BLOOD DRAWS; Start 12/07/18 at 16:15 Sodium Chloride 1,000 ml @ 100 mls/hr Q10H IV Last administered on 12/09/18at 01:42; Start 12/07/18 at 16:13 Ondansetron HCl (Zofran) 4 mg PRN Q4HRS PRN IV NAUSEA/VOMITING; Start 12/07/18 at 16:15 Acetaminophen (Tylenol) 650 mg PRN Q4HRS PRN PO TEMP OVER 100.4F OR MILD PAIN; Start 12/07/18 at 16:15 Clonidine HCl (Catapres) 0.1 mg PRN Q6HRS PRN PO SBP>160 OR DBP>90; Start 12/07/18 at 16:15 Docusate Sodium (Colace) 100 mg PRN BID PRN PO CONSTIPATION; Start 12/07/18 at 16:15 Albuterol Sulfate (Ventolin Neb Soln) 2.5 mg PRN Q4HRS PRN NEB SHORTNESS OF BREATH; Start 12/07/18 at 16:15 Guaifenesin (Robitussin) 200 mg PRN Q4HRS PRN PO COUGH; Start 12/07/18 at 16:15 Lorazepam (Ativan) 0.5 mg PRN Q4HRS PRN PO ANXIETY / AGITATION; Start 12/07/18 at 16:15 Enoxaparin Sodium (Lovenox 40mg Syringe) 40 mg DAILY SQ ; Start 12/08/18 at 09:00; Stop 12/08/18 at 11:27; Status DC Cefazolin Sodium (Ancef) 1 gm Q8HRS IVP Last administered on 12/09/18 05:54; Start 12/07/18 at 16:30 Diltiazem HCl (Cardizem 24hr Cd) 240 mg DAILY PO Last administered on 12/09/18 08:27; Start 12/08/18 at 09:00 Fluticasone Propionate (Flonase) 1 spray BID NS Last administered on 12/09/18 08:30; Start 12/07/18 at 21:00 Furosemide (Lasix) 40 mg DAILY PO Last administered on 12/09/18 08:28; Start 12/08/18 at 09:00 Ketoconazole (Nizoral 2% Topical) 1 raven DAILY TP Last administered on 12/08/18 21:35; Start 12/08/18 at 09:00 Levothyroxine Sodium (Synthroid) 100 mcg DAILY06 PO Last administered on 12/09/18 05:54; Start 12/08/18 at 06:00 Lisinopril (Prinivil) 5 mg DAILY PO Last administered on 12/09/18 08:27; Start 12/08/18 at 09:00 Metoprolol Tartrate (Lopressor) 50 mg BID PO Last administered on 12/09/18 08:29; Start 12/07/18 at 21:00 Potassium Chloride (Klor-Con) 10 meq DAILY PO Last administered on 12/09/18 08:29; Start 12/08/18 at 09:00 Timolol Maleate (Timoptic 0.5% [facility]) 1 drop BID OU Last administered on 12/09/18 08:30; Start 12/07/18 at 21:00 Triamcinolone Acetonide (Kenalog 0.1%) 1 raven TID TP Last administered on 12/09/18 08:31; Start 12/07/18 at 21:00 Vitamin A/Vitamin D (Vitamin A & D Ointment) 1 raven BID TP Last administered on 12/09/18 08:31; Start 12/07/18 at 21:00 Atorvastatin Calcium (Lipitor) 80 mg DAILY PO Last administered on 12/09/18 08:26; Start 12/08/18 at 09:00 Dorzolamide HCl (Trusopt) 1 drop BID OU Last administered on 12/09/18 08:30; Start 12/07/18 at 21:00 Duloxetine HCl (Cymbalta) 60 mg DAILY PO Last administered on 12/09/18 08:26; Start 12/08/18 at 09:00 Glipizide (Glucotrol) 10 mg BIDBFRMEAL PO Last administered on 12/07/18 19:37; Start 12/07/18 at 19:00; Stop 12/08/18 at 11:25; Status DC Multivitamins (Thera M Plus) 1 tab DAILY PO Last administered on 12/09/18 08:27; Start 12/08/18 at 09:00 Warfarin Sodium (Coumadin Per Pharmacy) 1 each PRN DAILY PRN MC SEE COMMENTS Last administered on 12/08/18 15:05; Start 12/07/18 at 18:45 Insulin Glargine (Lantus Syringe) 25 unit QHS SQ Last administered on 12/08/18 21:51; Start 12/07/18 at 21:00 Warfarin Sodium (Coumadin) 7.5 mg 1X ONCE PO Last administered on 12/07/18 19:37; Start 12/07/18 at 20:00; Stop 12/07/18 at 20:01; Status DC Insulin Human Lispro (HumaLOG) 0-9 UNITS TIDWMEALS SQ Last administered on 12/08/18 17:26; Start 12/08/18 at 08:00 Dextrose (Dextrose 50%-Water Syringe) 12.5 gm PRN Q15MIN PRN IV SEE COMMENTS; Start 12/08/18 at 08:00; Status UNV Glyburide (Diabeta) 5 mg BIDWMEALS PO Last administered on 12/09/18at 08:27; Start 12/08/18 at 11:30 Enoxaparin Sodium (Lovenox 100mg Syringe) 100 mg Q12HR SQ ; Start 12/08/18 at 21:00 Warfarin Sodium (Coumadin) 7.5 mg 1X WARF ONCE PO Last administered on 12/08/18at 17:22; Start 12/08/18 at 16:00; Stop 12/08/18 at 16:01; Status DC Active Scripts Active Reported Warfarin Sodium 4 Mg Tablet 4 Mg PO DAILY Warfarin Sodium 3 Mg Tablet 3 Mg PO DAILY Atorvastatin Calcium 80 Mg Tablet 1 Tab PO DAILY Diltiazem 24HR Cd (Diltiazem Hcl) 120 Mg Cap.er.24h 2 Cap PO DAILY 30 Days Cymbalta (Duloxetine Hcl) 60 Mg Capsule.dr 1 Cap PO DAILY Fluticasone Propionate Nasal [place] (Fluticasone Propionate) 16 Gm [place].susp 1 [place] NS BID Glipizide 10 Mg Tablet 1 Tab PO BID Lasix (Furosemide) 40 Mg Tablet 1 Tab PO DAILY 30 Days Levothyroxine Sodium 100 Mcg Tablet 1 Tab PO DAILY Lisinopril 5 Mg Tablet 1 Tab PO DAILY Metformin Hcl 1,000 Mg Tablet 1,000 Mg PO BIDWMEALS Metoprolol Tartrate 50 Mg Tablet 1 Tab PO BID Potassium Chloride 10 Meq Tab.sr.24h 10 Meq PO DAILY Timolol Maleate 5 Ml Drops 1 Drop EACHEYE BID Triamcinolone Acetonide 0.1% Oint (Triamcinolone Acetonide) 15 Gm Oint...g. 1 Raven TP TID MIX WITH EUCERIN DIRECTED BY PHYSICIAN A and D Ointment (Vits A and D/White Pet/Lanolin) 42.5 Gm Oint...g. 42.5 Gm TP BID Dorzolamide-Timolol Eye Drops (Dorzolamide Hcl/Timolol Maleat) 10 Ml Drops 1 Drop EACHEYE BID Metformin Hcl 500 Mg Tablet 500 Mg PO NOON Multivitamins (Multivitamin) 1 Each Tablet 1 Tab PO DAILY Ketoconazole 15 Gm Cream..g. 1 Raven TP DAILY Vitals/I & O Vital Sign - Last 24 Hours 12/08/18 12/08/18 12/08/18 12/08/18 15:00 19:00 20:00 21:35 Temp 98.1 98.4 98.1 98.4 Pulse 75 62 62 Resp 18 20 B/P (MAP) 133/70 (91) 143/67 (92) 143/67 Pulse Ox 95 94 O2 Delivery Room Air Room Air Room Air 12/08/18 12/09/18 12/09/18 12/09/18 22:21 03:00 07:00 08:27 Temp 98.2 97.9 98.3 98.2 97.9 98.3 Pulse 77 69 77 69 Resp 18 18 16 B/P (MAP) 149/79 (102) 130/73 (92) 144/55 (84) 130/73 Pulse Ox 93 94 95 O2 Delivery Room Air Room Air Room Air 12/09/18 12/09/18 08:27 08:29 Pulse 69 69 B/P (MAP) 130/73 130/73 l Intake and Output 12/08/18 12/08/18 12/09/18 15:00 23:00 07:00 Intake Total 500 ml 1450 ml Balance 500 ml 1450 ml CHRISTA HOWARD MD Dec 09, 2018 11:48
--- NOTE | 2018-12-09 12:41 | NUR ---
Pharmacy Warfarin Dosing Note S:Pharmacy consulted to assist with anticoagulation therapy started with target INR: 2 -3 O:AUBRIE OSMAN is a 58 year old M with Mechanical Aortic Valve LABS: Last INR: 1.7 Last HGB: 14.5 Last HCT: 43.5 Last PLT: 136 Last dose of 7.5 mg given on 12/08/18 at 1732 Previous Regimen: 7MG DAILY Vitamin K given: Drug Interaction Changes: Same Interacting Drug Ongoing Drug Interactions: CYMBALTA,DIFLUCAN A:INR of 1.7 is below desired range. Target range for this patient is: 2 -3 P: Warfarin dose: 8mg Today at 1600. Bridge Therapy: Enoxaparin 1 mg/kg q12h. Next INR due tomorrow. Pharmacy anticoagulation service will continue to follow. Chidi Irwin [facility], 12/09/18 [id number]
--- NOTE | 2018-12-09 12:44 | NUR ---
SW following for discharge planning. Discussed with RN, pt listed as having [employer] insurance, no longer self pay. RN advised no SW needs. SW will continue to follow.
[2018-12-09] MEDS: LACTOBACILLUS RHAMNOSUS GG 1 CAPSULE. PO SCH ×2 (14:32→21:25)
[2018-12-09 15:00] VITALS: BP 135/70
[2018-12-09] MEDS ORDERED: WARFARIN 4 MG TABLET. PO ONE (16:00)
[2018-12-09 19:00] VITALS: BP 143/75
[2018-12-09] MEDS: INSULIN GLARGINE SYRINGE. SQ SCH (21:35)
[2018-12-09 23:00] VITALS: BP 124/70
[2018-12-10] VITALS (7 sets, daily range): BP systolic 124–145; BP diastolic 69–87
[2018-12-10] MEDS: IV NORMAL SALINE 1000ML BAG 1,000 ML IV SCH ×3 (00:30→20:43)
[2018-12-10 04:46] LABS: PROTHROMBIN TIME PATIENT 17.7 SEC (11.7-14.0)
[2018-12-10] MEDS: LEVOTHYROXINE 100 MCG TABLET PO SCH (06:00)
[2018-12-10] MEDS: ceFAZolin SODIUM IV Push 1 GM VIAL. IVP SCH (06:00)
[2018-12-10] MEDS: METOPROLOL TART IMMED RELEASE 50 MG TABLET. PO SCH ×2 (09:28→20:40)
[2018-12-10] MEDS: glyBURIDE 5 MG TABLET PO SCH ×2 (09:28→17:15)
[2018-12-10] MEDS: LISINOPRIL 5 MG TABLET. PO SCH (09:28)
[2018-12-10] MEDS: MULTIVITAMIN with MINERAL TABLET. PO SCH (09:29)
[2018-12-10] MEDS: FLUCONAZOLE 100 MG TABLET. PO SCH (09:29)
[2018-12-10] MEDS: FUROSEMIDE 40 MG TABLET. PO SCH (09:29)
[2018-12-10] MEDS: LACTOBACILLUS RHAMNOSUS GG 1 CAPSULE. PO SCH ×2 (09:29→20:40)
[2018-12-10] MEDS: POTASSIUM CHLORIDE 10 MEQ TABLET.ER. PO SCH (09:29)
[2018-12-10] MEDS: TIMOLOL 0.5% OPHTH SOLUTION 5ML BOTTLE. OU SCH ×2 (09:30→20:42)
[2018-12-10] MEDS: DULoxetine HCL 30 MG CAPSULE.DR PO SCH (09:30)
[2018-12-10] MEDS: DORZOLAMIDE 2% OPHTH SOLUTION 10ML BOTTLE. OU SCH ×2 (09:30→20:42)
[2018-12-10] MEDS: FLUTICASONE 50MCG/NASAL SPRAY 16GM BOTTLE. NS SCH ×2 (09:30→20:42)
[2018-12-10] MEDS: VITS A & D/LANOLIN TOPICAL OINTMENT 42GM TUBE. TP SCH ×2 (09:31→20:41)
[2018-12-10] MEDS: KETOCONAZOLE 2% TOPICAL CREAM 15GM TUBE. TP SCH (09:31)
[2018-12-10] MEDS: TRIAMCINOLONE ACETONIDE 0.1% TOPICAL OINTMENT 15GM TUBE. TP SCH ×3 (09:31→20:39)
[2018-12-10] MEDS: INSULIN LISPRO 300 UNITS/3 ML VIAL. SQ SCH ×3 (09:42→17:21)
--- NOTE | 2018-12-10 11:05 | PDOC ---
[employer] PROGRESS NOTE Chief Complaint Chief Complaint left leg cellulitis, failed OP clindamycin HTN, controlled DM 2 - relatively ok, unknown [id number] Recent incarceration x 7 yrs - now in prison house Prosthetic Aortic valve - goal INR 2.-3 Subtherapeutic INR Obesity BMI 36.5 History of Present Illness History of Present Illness 12/10/2018 Patient was seen and examined. Pt still complains of swelling on the left leg, but reports the swelling and discomfort on the left lower leg has reduced since admission. Reports he is amenable to discharge, but reports he will not be able to get his outpatient antibiotics filled until Wednesday due to his [facility] [address] [place]. 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 HE is keeping legs elevated PLAn: Stay tonight then home tmr on PO abx KEep legs elevated [facility]ck to prison house tmr INR goal 2-3 - dw pharmacy AIRTIC VALVE PROSTHETIC - STILL 2-3 goal I started lovenox BID till therapeutic Vitals/I&O Vitals/I&O: Vital Signs Date Time Temp Pulse Resp B/P (MAP) Pulse Ox O2 Delivery O2 Flow Rate FiO2 12/10/18 09:29 76 138/73 12/10/18 04:06 98.0 16 95 Room Air 98.0 I & O 12/09/18 12/09/18 12/10/18 15:00 23:00 07:00 Intake Total 100 ml 100 ml Balance 100 ml 100 ml Physical Exam Physical Exam: GENERAL: Alert and oriented x 3 male lying in bed comfortably, in no acute distress, pleasant, cooperative. HEENT: Normocephalic, atraumatic, anicteric. No thrush. Oral mucosa moist. NECK: Supple, no JVD. LUNGS: Clear bilaterally. HEART: S1, S2, no murmurs. ABDOMEN: Soft, nontender, nondistended, no rebound, no guarding. DERMATOLOGIC: Warm and dry. No generalized rash except for left lower extremity redness, swelling, tenia onychomycosis. No calf tenderness. BACK: Reveals normal curvature. No CVA tenderness. NEUROLOGIC: Alert and oriented x 3, grossly nonfocal. PSYCHIATRIC: Cooperative, appropriate mood and affect. MUSCULOSKELETAL: No joint swelling. General: Alert, Oriented X3, Cooperative, mild distress Heart: Regular rate Lungs: Clear Abdomen: Normal bowel sounds, Soft Extremities: No cyanosis, Other (signs of chronic venous dermatitis on both lower extremities, left lower leg is slightly swollen when compared to the right. left lower extremity erythema consistant with cellulitis.) Skin: Other (Erythema of the left lower leg, signs of chronic venous insufficieny on both legs.) Labs Labs: Laboratory Tests Test 12/09/18 11:20 12/09/18 16:57 12/09/18 20:37 12/10/18 03:35 Glucose (Fingerstick) 156 mg/dL (70-99) 147 mg/dL (70-99) 159 mg/dL (70-99) Prothrombin Time 17.7 SEC (11.7-14.0) Prothromb Time International Ratio 1.5 (0.8-1.1) Review of Systems Review of Systems: No CP No SOB No N/V/D Assessment and Plan Assessmemt and Plan Problems Medical Problems: (1) Cellulitis Status: Acute Chief Complaint left leg cellulitis, failed OP clindamycin HTN, controlled DM 2 - relatively ok, unknown hgba1c Recent incarceration x 7 yrs - now in prison house Prosthetic Aortic valve - goal INR 2.-3 Subtherapeutic INR Obesity BMI 36.5 Plan: 1) Plan to D/C patient if on site services specialist can help patient get outpatient abx later today or tomorrow 2) Continue IV abx while inpatient 3) Full code 4) DVT prophylaxis 5) PT/OT Comment Review of Relevant I have reviewed the following items rosi (where applicable) has been applied. Medications: Current Medications Medications (Trade) Dose Ordered Sig/[place] Route PRN Reason Start Time Stop Time Status Last Admin Dose Admin Warfarin Sodium (Coumadin) 8 mg 1X WARF ONCE PO 12/09/18 16:00 12/09/18 16:01 DC 12/09/18 17:15 Lactobacillus Rhamnosus (Culturelle) 1 cap BID PO 12/09/18 14:00 12/10/18 09:29 URSULA MCCLURE III DO Dec 10, 2018 11:05
[2018-12-10] MEDS: ATORVASTATIN CALCIUM 40 MG TABLET. PO SCH (12:07)
--- NOTE | 2018-12-10 14:59 | NUR ---
Pharmacy Warfarin Dosing Note S:Pharmacy consulted to assist with anticoagulation therapy started with target INR: 2 -3 O:AUBRIE OSMAN is a 58 year old M with Mechanical Aortic Valve LABS: Last INR: 1.5 Last HGB: 14.5 Last HCT: 43.5 Last PLT: 136 Last dose of 8 MG given on 12/09/18 at 1732 Previous Regimen: 7MG DAILY Vitamin K given: Drug Interaction Changes: Same Interacting Drug Ongoing Drug Interactions: CYMBALTA,DIFLUCAN A:INR of 1.5 is below desired range. Target range for this patient is: 2 -3 P: Warfarin dose: 8mg Today at 1600 Bridge Therapy: Enoxaparin 1 mg/kg q12h Next INR due IN AM Pharmacy anticoagulation service will continue to follow. HERIBERTO BRUNO [facility], 12/10/18 [id number]
--- NOTE | 2018-12-10 15:47 | PDOC ---
Infectious Disease Note Subjective Subjective c/o some left leg pain, but redness and swelling is much better Soft stools Denies N/V/cramps/F/C ROS ROS per HPI Vital Sign Vital Signs Vital Signs Date Time Temp Pulse Resp B/P (MAP) Pulse Ox O2 Delivery O2 Flow Rate FiO2 12/10/18 11:59 98.1 70 20 145/70 (95) 92 Room Air 98.1 Physical Exam PHYSICAL EXAM GENERAL: Sleeping, arouses to name HEENT: Oral mucosa moist. NECK: Supple, no JVD. LUNGS: Clear bilaterally. HEART: S1, S2 ABDOMEN: Obese, soft, nontender EXTREMITIES: LLE swelling and redness improved. Plantar callus left great toe. SKIN: round well demarcated red area left posterior thigh NEUROLOGIC: Alert and oriented x 3, grossly nonfocal. Labs Lab Laboratory Tests Test 12/09/18 16:57 12/09/18 20:37 12/10/18 03:35 12/10/18 08:22 Glucose (Fingerstick) 147 mg/dL (70-99) 159 mg/dL (70-99) 119 mg/dL (70-99) Prothrombin Time 17.7 SEC (11.7-14.0) Prothromb Time International Ratio 1.5 (0.8-1.1) Test 12/10/18 12:06 Glucose (Fingerstick) 162 mg/dL (70-99) Micro Microbiology 12/07/18 Blood Culture - Preliminary, Resulted NO GROWTH AFTER 3 DAYS Objective Assessment Left lower extremity cellulitis, was on clindamycin as outpatient. improving Tinea. Diabetes mellitus. Poor social situation. Prosthetic Aortic valve - on chronic warfarin Plan Plan of Care Cefazolin changed to Keflex per primary D/c fluconazole to DDI Elevate LLE Optimal edema control. TAIWO POLLOCK CLASSIFICATION COUNSELOR Dec 10, 2018 15:47
[2018-12-10] MEDS ORDERED: WARFARIN 4 MG TABLET. PO ONE (16:00)
[2018-12-10] MEDS: CEPHALEXIN 250 MG CAPSULE. PO SCH ×2 (17:14→20:40)
[2018-12-10] MEDS: INSULIN GLARGINE SYRINGE. SQ SCH (21:27)
[2018-12-11 03:00] VITALS: BP 116/65
[2018-12-11 04:43] LABS: BASO # 0.1 x10^3/uL (0.0-0.2); BASO % 1 % (0-3); EOS # 0.3 x10^3/uL (0.0-0.7); EOS % 4 % (0-3); HEMATOCRIT 43.7 % (39.0-53.0); HEMOGLOBIN 15.1 g/dL (13.0-17.5); LYMPH # 1.5 x10^3/uL (1.0-4.8); LYMPH % 21 % (24-48); MEAN CORPUSCULAR HEMOGLOBIN 31 pg (25-35); MEAN CORPUSCULAR HGB CONC 35 g/dL (31-37); MEAN CORPUSCULAR VOLUME 91 fL (79-100); MONO # 0.8 x10^3/uL (0.0-1.1); MONO % 11 % (0-9); NEUT # 4.5 x10^3/uL (1.8-7.7); NEUT % 63 % (31-73); PLATELET COUNT 134 x10^3/uL (140-400); RED BLOOD COUNT 4.83 x10^6/uL (4.30-5.70); RED CELL DISTRIBUTION WIDTH 12.9 % (11.5-14.5); WHITE BLOOD COUNT 7.2 x10^3/uL (4.0-11.0)
[2018-12-11 04:55] LABS: PROTHROMBIN TIME PATIENT 23.5 SEC (11.7-14.0)
[2018-12-11 05:11] LABS: ALBUMIN 3.1 g/dL (3.4-5.0); ALBUMIN/GLOBULIN RATIO 0.7 (1.0-1.7); CALCIUM 8.4 mg/dL (8.5-10.1); CREATININE 0.9 mg/dL (0.7-1.3); GFR 86.4; POTASSIUM 4.3 mmol/L (3.5-5.1); TOTAL BILIRUBIN 0.6 mg/dL (0.2-1.0); TOTAL PROTEIN 7.3 g/dL (6.4-8.2)
[2018-12-11] MEDS: LEVOTHYROXINE 100 MCG TABLET PO SCH (05:45)
[2018-12-11] MEDS ORDERED: CEPH-264 PO (07:35)
--- NOTE | 2018-12-11 07:55 | NUR ---
Pharmacy Warfarin Dosing Note S:Pharmacy consulted to assist with anticoagulation therapy started with target INR: 2 -3 O:AUBRIE OSMAN is a 58 year old M with Mechanical Aortic Valve LABS: Last INR: 2.1 Last HGB: 14.5 Last HCT: 43.5 Last PLT: 136 Last dose of 8 MG given on 12/10/18 at 1732 Previous Regimen: 7MG DAILY Vitamin K given: Drug Interaction Changes: Same Interacting Drug Ongoing Drug Interactions: CYMBALTA,DIFLUCAN A:INR of 2.1 is within desired range. Target range for this patient is: 2 -3 P: Warfarin dose: 8mg Today at 1600 Bridge Therapy: WILL DC LOVENOX AFTER THIS MORNING DOSE. Next INR due IN AM Pharmacy anticoagulation service will continue to follow. HERIBERTO BRUNO [facility], 12/11/18 [id number]
[2018-12-11 07:59] VITALS: BP 125/67
--- NOTE | 2018-12-11 08:54 | PDOC3 ---
Discharge Summary Visit Information Date of Admission: Dec 07, 2018 Date of Discharge: Dec 11, 2018 Admitting Diagnosis Comment: left leg cellulitis, failed OP clindamycin - better now- PO kefles per ID HTN, controlled DM 2 - relatively ok, Recent incarceration x 7 yrs - now in correction house PRosthetic Aortic valve - goal INR 2.-3 SUbtherapeutic INR better on dc Obesity BMI 36.5 Final Diagnosis Problems Medical Problems: (1) Cellulitis Status: Acute Brief Hospital Course Allergies Allergies Coded Allergies Type Severity Reaction Last Updated Verified tetracycline Allergy Intermediate rash 12/07/18 Yes Vital Signs Vital Signs Date Time Temp Pulse Resp B/P (MAP) Pulse Ox O2 Delivery O2 Flow Rate FiO2 12/11/18 03:00 97.9 66 18 116/65 (82) 94 Room Air 97.9 Lab Results Laboratory Tests Test 12/09/18 11:20 12/09/18 16:57 12/09/18 20:37 12/10/18 03:35 Glucose (Fingerstick) 156 mg/dL (70-99) 147 mg/dL (70-99) 159 mg/dL (70-99) Prothrombin Time 17.7 SEC (11.7-14.0) Prothromb Time International Ratio 1.5 (0.8-1.1) Test 12/10/18 08:22 12/10/18 12:06 12/10/18 16:55 12/10/18 20:41 Glucose (Fingerstick) 119 mg/dL (70-99) 162 mg/dL (70-99) 220 mg/dL (70-99) 177 mg/dL (70-99) Test 12/11/18 04:25 12/11/18 07:41 White Blood Count 7.2 x10^3/uL (4.0-11.0) Red Blood Count 4.83 x10^6/uL (4.30-5.70) Hemoglobin 15.1 g/dL (13.0-17.5) Hematocrit 43.7 % (39.0-53.0) Mean Corpuscular Volume 91 fL (79-100) Mean Corpuscular Hemoglobin 31 pg (25-35) Mean Corpuscular Hemoglobin Concent 35 g/dL (31-37) Red Cell Distribution Width 12.9 % (11.5-14.5) Platelet Count 134 x10^3/uL (140-400) Neutrophils (%) (Auto) 63 % (31-73) Lymphocytes (%) (Auto) 21 % (24-48) Monocytes (%) (Auto) 11 % (0-9) Eosinophils (%) (Auto) 4 % (0-3) Basophils (%) (Auto) 1 % (0-3) Neutrophils # (Auto) 4.5 x10^3/uL (1.8-7.7) Lymphocytes # (Auto) 1.5 x10^3/uL (1.0-4.8) Monocytes # (Auto) 0.8 x10^3/uL (0.0-1.1) Eosinophils # (Auto) 0.3 x10^3/uL (0.0-0.7) Basophils # (Auto) 0.1 x10^3/uL (0.0-0.2) Prothrombin Time 23.5 SEC (11.7-14.0) Prothromb Time International Ratio 2.1 (0.8-1.1) Sodium Level 140 mmol/L (136-145) Potassium Level 4.3 mmol/L (3.5-5.1) Chloride Level 106 mmol/L (98-107) Carbon Dioxide Level 28 mmol/L (21-32) Anion Gap 6 (6-14) Blood Urea Nitrogen 19 mg/dL (8-26) Creatinine 0.9 mg/dL (0.7-1.3) Estimated GFR (Cockcroft-Gault) 86.4 BUN/Creatinine Ratio 21 (6-20) Glucose Level 118 mg/dL (70-99) Calcium Level 8.4 mg/dL (8.5-10.1) Total Bilirubin 0.6 mg/dL (0.2-1.0) Aspartate Amino Transf (AST/SGOT) 24 U/L (15-37) Alanine Aminotransferase (ALT/SGPT) 21 U/L (16-63) Alkaline Phosphatase 64 U/L (46-116) Total Protein 7.3 g/dL (6.4-8.2) Albumin 3.1 g/dL (3.4-5.0) Albumin/Globulin Ratio 0.7 (1.0-1.7) Glucose (Fingerstick) 153 mg/dL (70-99) Laboratory Tests Test 12/10/18 12:06 12/10/18 16:55 12/10/18 20:41 12/11/18 04:25 Glucose (Fingerstick) 162 mg/dL (70-99) 220 mg/dL (70-99) 177 mg/dL (70-99) White Blood Count 7.2 x10^3/uL (4.0-11.0) Red Blood Count 4.83 x10^6/uL (4.30-5.70) Hemoglobin 15.1 g/dL (13.0-17.5) Hematocrit 43.7 % (39.0-53.0) Mean Corpuscular Volume 91 fL (79-100) Mean Corpuscular Hemoglobin 31 pg (25-35) Mean Corpuscular Hemoglobin Concent 35 g/dL (31-37) Red Cell Distribution Width 12.9 % (11.5-14.5) Platelet Count 134 x10^3/uL (140-400) Neutrophils (%) (Auto) 63 % (31-73) Lymphocytes (%) (Auto) 21 % (24-48) Monocytes (%) (Auto) 11 % (0-9) Eosinophils (%) (Auto) 4 % (0-3) Basophils (%) (Auto) 1 % (0-3) Neutrophils # (Auto) 4.5 x10^3/uL (1.8-7.7) Lymphocytes # (Auto) 1.5 x10^3/uL (1.0-4.8) Monocytes # (Auto) 0.8 x10^3/uL (0.0-1.1) Eosinophils # (Auto) 0.3 x10^3/uL (0.0-0.7) Basophils # (Auto) 0.1 x10^3/uL (0.0-0.2) Prothrombin Time 23.5 SEC (11.7-14.0) Prothromb Time International Ratio 2.1 (0.8-1.1) Sodium Level 140 mmol/L (136-145) Potassium Level 4.3 mmol/L (3.5-5.1) Chloride Level 106 mmol/L (98-107) Carbon Dioxide Level 28 mmol/L (21-32) Anion Gap 6 (6-14) Blood Urea Nitrogen 19 mg/dL (8-26) Creatinine 0.9 mg/dL (0.7-1.3) Estimated GFR (Cockcroft-Gault) 86.4 BUN/Creatinine Ratio 21 (6-20) Glucose Level 118 mg/dL (70-99) Calcium Level 8.4 mg/dL (8.5-10.1) Total Bilirubin 0.6 mg/dL (0.2-1.0) Aspartate Amino Transf (AST/SGOT) 24 U/L (15-37) Alanine Aminotransferase (ALT/SGPT) 21 U/L (16-63) Alkaline Phosphatase 64 U/L (46-116) Total Protein 7.3 g/dL (6.4-8.2) Albumin 3.1 g/dL (3.4-5.0) Albumin/Globulin Ratio 0.7 (1.0-1.7) Test 12/11/18 07:41 Glucose (Fingerstick) 153 mg/dL (70-99) Brief Hospital Course Mr. Crowe is a 58 old white male who was incarcerated x 7 yrs and now lives in [facility] came in for mild to moderate leg cellulitis that failed OP clinda, STayed here with ID on board, better with IV abx, BC neg, non toxic appearing, Safe for home PO keflex per ID HE needs cab ride to home HE claims his case mx wont be able to get meds wednesday, We are seeing if we can do something on our end to get his meds wednesday - charles MONTOYA wednesday Otherwise, dc today to [facility], rx on chart Consults: ID Proc;NOne INR on dc 2.,1- prosthetic AV - goal INR 2-3 Discharge Information Condition at Discharge: Improved, Stable Disposition/Orders: D/C to Home Scheduled Atorvastatin Calcium (Atorvastatin Calcium) 80 Mg Tablet, 1 TAB PO DAILY for HLD, #30 Ref 5 (Reported) Entered as Reported by: TATIANA PORRAS on 12/07/181627 Last Taken: UNKNOWN on Unknown Date & Time Last Action: Converted on 12/07/181837 by TATIANA PORRAS Cephalexin (Keflex) 500 Mg Capsule, 1 CAP PO BID for leg cellulitis for 7 Days, #14 Ref 0 Prescribed by: CHRISTA HOWARD on 12/11/18 0735 Diltiazem Hcl (Diltiazem 24HR Cd) 120 Mg Cap.er.24h, 2 CAP PO DAILY for HTN for 30 Days, #60 Ref 0 (Reported) Entered as Reported by: TATIANA PORRAS on 12/07/181627 Last Taken: UNKNOWN on Unknown Date & Time Last Action: Continued on 12/07/181837 by TATIANA PORRAS Dorzolamide Hcl/Timolol Maleat (Dorzolamide-Timolol Eye Drops) 10 Ml Drops, 1 DROP EACHEYE BID for glaucoma, #10 Ref 0 (Reported) Entered as Reported by: TATIANA PORRAS on 12/07/181627 Last Taken: UNKNOWN on Unknown Date & Time Last Action: Converted on 1837 by TATIANA PORRAS Duloxetine Hcl (Cymbalta) 60 Mg Capsule.dr, 1 CAP PO DAILY for MOOD, #90 Ref 3 (Reported) Entered as Reported by: TATIANA PORRAS on 12/07/181627 Last Taken: UNKNOWN on Unknown Date & Time Last Action: Converted on 12/07/181837 by TATIANA PORRAS Fluticasone Propionate (Fluticasone Propionate Nasal [place]) 16 Gm [place].susp, 1 SPRAY NS BID for ALLERGIES, #1 Ref 11 (Reported) Entered as Reported by: TATIANA PORRAS on 12/07/181627 Last Taken: UNKNOWN on Unknown Date & Time Last Action: Continued on 12/07/181837 by TATIANA PORRAS Furosemide (Lasix) 40 Mg Tablet, 1 TAB PO DAILY for HTN for 30 Days, #30 Ref 0 (Reported) Entered as Reported by: TATIANA PORRAS on 12/07/181627 Last Taken: UNKNOWN on Unknown Date & Time Last Action: Continued on 12/07/181837 by TATIANA PORRAS Glipizide (Glipizide) 10 Mg Tablet, 1 TAB PO BID for DM II, #60 Ref 5 (Reported) Entered as Reported by: TATIANA PORRAS on 12/07/181627 Last Taken: UNKNOWN on Unknown Date & Time Last Action: Converted on 12/07/181837 by TATIANA PORRAS Ketoconazole (Ketoconazole) 15 Gm Cream..g., 1 SARAVANAN TP DAILY for rash, #15 (Reported) Entered as Reported by: TATIANA PORRAS on 12/07/181627 Last Taken: UNKNOWN on Unknown Date & Time Last Action: Continued on 12/07/181837 by TATIANA PORRAS Levothyroxine Sodium (Levothyroxine Sodium) 100 Mcg Tablet, 1 TAB PO DAILY for HYPOTHYROIDISM, #30 Ref 5 (Reported) Entered as Reported by: TATIANA PORRAS on 12/07/181627 Last Taken: UNKNOWN on Unknown Date & Time Last Action: Continued on 12/07/181837 by TATIANA PORRAS Lisinopril (Lisinopril) 5 Mg Tablet, 1 TAB PO DAILY for HTN, #30 Ref 5 (Reported) Entered as Reported by: TATIANA PORRAS on 12/07/181627 Last Taken: UNKNOWN on Unknown Date & Time Last Action: Continued on 12/07/181837 by TATIANA PORRAS Metformin Hcl (Metformin Hcl) 500 Mg Tablet, 500 MG PO NOON for ANTI-DIABETIC, Ref 0 (Reported) Entered as Reported by: TATIANA PORRAS on 12/07/181627 Last Taken: UNKNOWN on Unknown Date & Time Last Action: New Order on 12/07/181627 by TATIANA PORRAS Metformin Hcl (Metformin Hcl) 1,000 Mg Tablet, 1,000 MG PO BIDWMEALS for DM II , (Reported) Entered as Reported by: TATIANA PORRAS on 12/07/181627 Last Taken: UNKNOWN on Unknown Date & Time Last Action: New Order on 12/07/181627 by TATIANA PORRAS Metoprolol Tartrate (Metoprolol Tartrate) 50 Mg Tablet, 1 TAB PO BID for htn, #60 Ref 5 (Reported) Entered as Reported by: TATIANA PORRAS on 12/07/181627 Last Taken: UNKNOWN on Unknown Date & Time Last Action: Continued on 12/07/181837 by TATIANA PORRAS Multivitamin (Multivitamins) 1 Each Tablet, 1 TAB PO DAILY for supplement, #90 Ref 3 (Reported) Entered as Reported by: TATIANA PORRAS on 12/07/181627 Last Taken: UNKNOWN on Unknown Date & Time Last Action: Converted on 12/07/181837 by TATIANA PORRAS Potassium Chloride (Potassium Chloride) 10 Meq Tab.sr.24h, 10 MEQ PO DAILY for supplement , (Reported) Entered as Reported by: TATIANA PORRAS on 12/07/181627 Last Taken: UNKNOWN on Unknown Date & Time Last Action: Continued on 12/07/181837 by TATIANA PORRAS Timolol Maleate (Timolol Maleate) 5 Ml Drops, 1 DROP EACHEYE BID for glaucoma , #15 Ref 0 (Reported) Entered as Reported by: TATIANA PORRAS on 12/07/181627 Last Taken: UNKNOWN on Unknown Date & Time Last Action: Continued on 12/07/181837 by TATIANA PORRAS Triamcinolone Acetonide (Triamcinolone Acetonide 0.1% Oint) 15 Gm Oint...g., 1 SARAVANAN TP TID for WOUND CARE, #1 (Reported) MIX WITH EUCERIN DIRECTED BY PHYSICIAN Entered as Reported by: TATIANA PORRAS on 12/07/181627 Last Taken: UNKNOWN on Unknown Date & Time Last Action: Continued on 12/07/181837 by TATIANA PORRAS Vits A and D/White Pet/Lanolin (A and D Ointment) 42.5 Gm Oint...g., 42.5 GM TP BID for rash, (Reported) Entered as Reported by: TATIANA PORRAS on 12/07/181627 Last Taken: UNKNOWN on Unknown Date & Time Last Action: Continued on 12/07/181837 by TATIANA PORRAS Warfarin Sodium (Warfarin Sodium) 3 Mg Tablet, 3 MG PO DAILY, #30 (Reported) Entered as Reported by: TAMARA CRUM RPH on 12/07/181857 Last Action: New Order on 12/07/181857 by TAMARA CRUM RPH Warfarin Sodium (Warfarin Sodium) 4 Mg Tablet, 4 MG PO DAILY, #30 (Reported) Entered as Reported by: TAMARA CRUM RPH on 12/07/181857 Last Action: New Order on 12/07/181857 by ZEE BAE CHERRIE Y MD Dec 11, 2018 08:54
[2018-12-11] MEDS: VITS A & D/LANOLIN TOPICAL OINTMENT 42GM TUBE. TP SCH (09:00)
[2018-12-11] MEDS: TRIAMCINOLONE ACETONIDE 0.1% TOPICAL OINTMENT 15GM TUBE. TP SCH (09:00)
[2018-12-11] MEDS: DULoxetine HCL 30 MG CAPSULE.DR PO SCH (09:01)
[2018-12-11] MEDS: MULTIVITAMIN with MINERAL TABLET. PO SCH (09:01)
[2018-12-11] MEDS: POTASSIUM CHLORIDE 10 MEQ TABLET.ER. PO SCH (09:01)
[2018-12-11] MEDS: CEPHALEXIN 250 MG CAPSULE. PO SCH (09:01)
[2018-12-11] MEDS: LACTOBACILLUS RHAMNOSUS GG 1 CAPSULE. PO SCH (09:02)
[2018-12-11] MEDS: ATORVASTATIN CALCIUM 40 MG TABLET. PO SCH (09:02)
[2018-12-11] MEDS: LISINOPRIL 5 MG TABLET. PO SCH (09:02)
[2018-12-11] MEDS: METOPROLOL TART IMMED RELEASE 50 MG TABLET. PO SCH (09:02)
[2018-12-11] MEDS: FUROSEMIDE 40 MG TABLET. PO SCH (09:03)
[2018-12-11] MEDS: FLUTICASONE 50MCG/NASAL SPRAY 16GM BOTTLE. NS SCH (09:04)
[2018-12-11] MEDS: glyBURIDE 5 MG TABLET PO SCH (09:04)
[2018-12-11] MEDS: DORZOLAMIDE 2% OPHTH SOLUTION 10ML BOTTLE. OU SCH (09:05)
[2018-12-11] MEDS: TIMOLOL 0.5% OPHTH SOLUTION 5ML BOTTLE. OU SCH (09:05)
[2018-12-11] MEDS: KETOCONAZOLE 2% TOPICAL CREAM 15GM TUBE. TP SCH (09:06)
[2018-12-11] MEDS: INSULIN LISPRO 300 UNITS/3 ML VIAL. SQ SCH ×2 (09:20→12:00)
[2018-12-11 11:59] VITALS: BP 140/77
--- NOTE | 2018-12-11 12:15 | NUR ---
DISCHARGE INSTRUCTIONS GIVEN, QUESTIONS AND CONCERNS ANSWERED, PATIENT VERBAKIZED UNDERSTANDING OF DISCHARGE INFORMATION INCLUDING TAKING ALL MEDICATIONS INSTRUCTED AND FOLLOWING UP WITH HIS PRIMARY PROVIDER IN 1-2 WEEKS. ALL PERSONAL BELONGINGS GATHERED BY THE PATIENT AND PLACED IN BAGS FOR DISCHARGE, SALINE LOCK REMOVED PER THIS LIMOUSINE AND HEARSE UPHOLSTERER, BAND AIDE APPLIED. PRESCRIPTION GIVEN TO PATIENT FOR KEFLEX WELL 3 DAY DOSAGE FROM THE PHARMACY.
--- NOTE | 2018-12-11 13:30 | NUR ---
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
[2018-12-11] MEDS ORDERED: WARFARIN 4 MG TABLET. PO ONE (16:00)
== END 2018-12-11 13:30 | disposition home or self-care (01) | DRG 603 ==
LOC: ER 11:26 → 5 SOUTH 13:27
PROVIDERS: ADMIT Family Medicine; ATTEND Family Medicine
DX: L03.116 Cellulitis of left lower limb (principal); R65.10 Systemic inflammatory response syndrome (SIRS) of non-infectious origin without acute organ dysfunction; B35.1 Tinea unguium; E03.9 Hypothyroidism, unspecified; E11.9 Type 2 diabetes mellitus without complications; E66.01 Morbid (severe) obesity due to excess calories; E78.5 Hyperlipidemia, unspecified; I10 Essential (primary) hypertension; M19.90 Unspecified osteoarthritis, unspecified site; Z68.36 Body mass index [BMI] 36.0-36.9, adult; Z79.01 Long term (current) use of anticoagulants; Z82.49 Family history of ischemic heart disease and other diseases of the circulatory system; Z90.49 Acquired absence of other specified parts of digestive tract; Z95.2 Presence of prosthetic heart valve; Z83.3 Family history of diabetes mellitus; Z88.8 Allergy status to other drugs, medicaments and biological substances; Z79.899 Other long term (current) drug therapy
CPT/HCPCS: 36415; 73590; 80048; 80053; 82962; 83036; 83605; 85025; 85610; 85651; 87040; 90471; 90686; 93971; 96365; J0690; J1815; J3370; J3490; J7030; J7040; 97110; 97530; 97535; 99285-25; G0378